=== PATIENT | female | born 1990 | race Caucasian/White ===

== ENCOUNTER → 2016-10-29 | Outpatient (CLI) | payer OTHER ==
[~2016-10-29] MED LIST: ACET50TA PO; CELE-19 PO; CYCL10TA PO; HYDR-3713 PO; IBUP600T26 PO; ROBA750T4 PO; TRAM50TA2 PO
--- NOTE | 2016-10-29 11:08 | REP ---
Hepatobiliary scan and gallbladder ejection fraction: History: Right upper quadrant abdominal pain Technique: 6.5 mCi of technetium-99m mebrofenin was injected and sequential anterior images are acquired. 65 minutes after the mebrofenin injection, the patient consumed 8 ounces Ensure and an additional 60 minutes of imaging was acquired. Regions of interest are plotted around the gallbladder. Findings: The initial hepatocellular parenchymal uptake phase is normal and homogeneous. Intra- and extra-hepatic bile ducts and duodenum are labeled by the 10 -minute image. The gallbladder is first labeled on the 15 -minute image. There is normal washout from the liver parenchyma into the gallbladder and small intestine on subsequent images. The gallbladder ejection fraction is normal at 33 %. Values greater than 35 % are considered normal with this technique. Impression: Borderline low ejection fraction, otherwise negative hepatobiliary scan . Signed by Rodriguez Saldana MD 10/29/2016 11:00 A
== END ==
LOC: M RAD 08:03
PROVIDERS: ATTEND Family Medicine
DX: R10.11 Right upper quadrant pain (principal)

== ENCOUNTER → 2016-11-22 | Outpatient (CLI) | payer OTHER ==
[~2016-11-22] MED LIST changes: +GASTROGRAFIN SOLUTION 30ML (Q9963) As Ordered ONE; +ISOVUE-370 76% 100ML VIAL (Q9967) As Ordered ONE
--- NOTE | 2016-11-22 12:51 | REP ---
CT STUDY OF THE ABDOMEN AND PELVIS WITHOUT AND WITH IV CONTRAST: WITH ORAL CONTRAST. HISTORY: Right upper quadrant abdominal pain. The patient relates that she is status post prior appendectomy. Comparison study is from November 07, 2012. CT CONTRAST DOSE: 100 mL of Isovue-[address] FINDINGS: Preliminary digital activities director scouting radiograph shows mild gaseous distension of the sigmoid colon. Umbilical jewelry is noted in place. The lung bases remain clear. There is no evidence of pleural effusion or upper abdominal ascites. The liver and the spleen are normal in size and homogeneous in texture. No adrenal lesion is seen on either side. The kidneys enhance symmetrically and are morphologically intact on pre- and postcontrast images. No hydronephrosis is seen. Pancreas is unremarkable. The gallbladder shows no evidence of stone or other abnormality. No retroperitoneal mass or adenopathy is seen. Normal caliber aorta is noted. There are surgical clips at the appendectomy site medial to the cecum. Small and large bowel loops are unremarkable on CT images. No obstructive lesion is seen. No evidence of free air or abnormal fluid collection is seen. Uterus is mildly prominent measuring 9.7 cm in length but otherwise unremarkable. Urinary bladder is intact. No ovarian abnormality is appreciated. No pelvic mass or adenopathy is seen. IMPRESSION: Status post appendectomy. Mildly prominent size uterus. Otherwise, normal CT study abdomen and pelvis without and with IV contrast. Signed by Rodriguez Saldana MD 11/22/2016 04:46 P
== END ==
LOC: M RAD 08:58
PROVIDERS: ATTEND Surgery
DX: R10.9 Unspecified abdominal pain (principal)

== ENCOUNTER → 2017-03-12 | Outpatient (REF) | payer OTHER ==
[~2017-03-12] MED LIST changes: -GASTROGRAFIN SOLUTION 30ML (Q9963) As Ordered ONE; -ISOVUE-370 76% 100ML VIAL (Q9967) As Ordered ONE
== END ==
LOC: M SFHCCLAY 08:31
PROVIDERS: ATTEND Nurse Practitioner Family
DX: Z11.3 Encounter for screening for infections with a predominantly sexual mode of transmission (principal); Z13.89 Encounter for screening for other disorder; Z12.4 Encounter for screening for malignant neoplasm of cervix

== ENCOUNTER → 2017-03-20 | Outpatient (CLI) | payer OTHER ==
[~2017-03-20] MED LIST changes: +ADDE10CA3 PO; +BUPR15TA PO; -CELE-19 PO; +CELE1CAP4 PO
--- NOTE | 2017-03-20 08:37 | REP ---
Clinical: Pain. Technique: AP and lateral views of the left tibia / fibula. Findings: Osseous structures and joint spaces are intact and normal for age. No acute fracture or dislocation. No subcutaneous emphysema or radiodense foreign body. Impression: Normal left tibia / fibula radiographs.
== END ==
LOC: M CLY 08:12
PROVIDERS: ATTEND Nurse Practitioner Family
DX: M79.662 Pain in left lower leg (principal)

== ENCOUNTER 2017-05-24 15:50 | Emergency (ER) | payer OTHER ==
[~2017-05-24] VITALS: Ht 152.4 cm; Wt 56.8 kg
[~2017-05-24 15:50] MED LIST changes: -ADDE10CA3 PO; -BUPR15TA PO
[2017-05-24] MEDS ORDERED: BUPR15TA PO (16:08)
[2017-05-24] MEDS ORDERED: ADDE10CA3 PO (16:08)
[2017-05-24 19:10] VITALS: BP 129/76
== END 2017-05-24 19:14 | disposition home or self-care (01) ==
LOC: M ED 15:50
DX: F41.9 Anxiety disorder, unspecified (principal); R00.2 Palpitations; F17.200 Nicotine dependence, unspecified, uncomplicated; Z79.899 Other long term (current) drug therapy

== ENCOUNTER → 2017-08-01 | Outpatient (REF) | payer OTHER ==
[~2017-08-01] MED LIST changes: +ADDE10CA3 PO; +BUPR15TA PO
== END ==
LOC: M LAB REF 11:30
PROVIDERS: ATTEND Nurse Practitioner Family
DX: B00.9 Herpesviral infection, unspecified (principal)

== ENCOUNTER → 2017-08-19 | Outpatient (REF) | payer OTHER ==
[2017-08-20 12:35] LABS: BASO % 0.6 % (0.0-1.0); EOS # 0.2 10^3/uL (0.0-0.50); EOS % 4.1 % (0.0-3.0); IMMATURE GRANULOCYTE % 0.2 % (0-0); LYMPH # 1.1 10^3/uL (1.5-6.5); LYMPH % 19.9 % (24.0-44.0); MEAN CORPUSCULAR HEMOGLOBIN 30.7 pg (27.0-33.0); MEAN CORPUSCULAR HGB CONC 34.1 g/dl (32.0-36.5); MEAN CORPUSCULAR VOLUME 90.1 fl (80.0-96.0); MONO # 0.5 10^3/uL (0.0-0.8); MONO % 9.7 % (0.0-5.0); NEUTROPHILS # 3.5 10^3/uL (1.8-7.7); NEUTROPHILS % 65.5 % (36.0-66.0); PLATELET COUNT, AUTOMATED 183 10^3/uL (150-450); WHITE BLOOD COUNT 5.3 10^3/uL (4.0-10.0)
== END ==
LOC: M SFHCCLAY 13:56
PROVIDERS: ATTEND Family Medicine
DX: J02.9 Acute pharyngitis, unspecified (principal); R53.83 Other fatigue

== ENCOUNTER → 2017-10-03 | Outpatient (CLI) | payer OTHER | LOC: M CLY 14:02 | DX: R07.81 Pleurodynia (principal); R07.89 Other chest pain | CPT/HCPCS: 71046 ==

== ENCOUNTER → 2017-12-05 | Outpatient (REF) | payer OTHER ==
[2017-12-05 19:07] LABS: CHLAMYDIA DNA AMPLIFICATION NEGATIVE (NEGATIVE); GC DNA AMPLIFICATION NEGATIVE (NEGATIVE)
== END ==
LOC: M SFHCCLAY 16:17
DX: N76.0 Acute vaginitis (principal)

== ENCOUNTER → 2018-04-07 | Outpatient (REF) | payer OTHER ==
[2018-04-07 16:17] LABS: BASO % 0.4 % (0.0-1.0); EOS # 0.3 10^3/uL (0.0-0.50); EOS % 5.6 % (0.0-3.0); HEMATOCRIT 40.4 % (36.0-47.0); HEMOGLOBIN 13.8 g/dl (12.0-15.5); IMMATURE GRANULOCYTE % 0.2 % (0-3.0); LYMPH % 20.2 % (24.0-44.0); MEAN CORPUSCULAR HEMOGLOBIN 31.9 pg (27.0-33.0); MEAN CORPUSCULAR HGB CONC 34.2 g/dl (32.0-36.5); MEAN CORPUSCULAR VOLUME 93.3 fl (80.0-96.0); MONO # 0.3 10^3/uL (0.0-0.8); MONO % 6.6 % (0.0-5.0); NEUTROPHILS # 3.4 10^3/uL (1.8-7.7); PLATELET COUNT, AUTOMATED 198 10^3/uL (150-450); RED BLOOD COUNT 4.33 10^6/uL (4.00-5.40); RED CELL DISTRIBUTION WIDTH 12.1 % (11.5-14.5); WHITE BLOOD COUNT 5.1 10^3/uL (4.0-10.0)
[2018-04-07 16:25] LABS: URIC ACID 4.7 MG/DL (2.6-6.0)
[2018-04-07 16:25] LABS: C REACTIVE PROTEIN QUANTITATIV 0.32 MG/DL (0.00-0.30)
== END ==
LOC: M SFHCCLAY 09:18
DX: M79.672 Pain in left foot (principal)

== ENCOUNTER → 2018-04-07 | Outpatient (CLI) | payer OTHER | LOC: M CLY 09:22 | DX: M79.672 Pain in left foot (principal) | CPT/HCPCS: 73630 ==

== ENCOUNTER 2018-07-04 13:49 | Inpatient (IN) | payer MEDICAID, OTHER ==
[2018-07-04 14:48] LABS: HEMATOCRIT 41.3 % (36.0-47.0); HEMOGLOBIN 14.7 g/dl (12.0-15.5); MEAN CORPUSCULAR HEMOGLOBIN 31.7 pg (27.0-33.0); MEAN CORPUSCULAR HGB CONC 35.6 g/dl (32.0-36.5); MEAN CORPUSCULAR VOLUME 89.2 fl (80.0-96.0); PLATELET COUNT, AUTOMATED 259 10^3/uL (150-450); RED BLOOD COUNT 4.63 10^6/uL (4.00-5.40); RED CELL DISTRIBUTION WIDTH 11.9 % (11.5-14.5)
[2018-07-04 15:05] LABS: CONTROL LINE HCG INT CTR LINE PRESENT; HCG, SERUM QUALITATIVE NEGATIVE (NEGATIVE)
[2018-07-04 15:10] LABS: AMPHETAMINES LEVEL URINE NEGATIVE (NEGATIVE); BARBITURATES URINE NEGATIVE (NEGATIVE); BENZODIAZEPINES URINE NEGATIVE (NEGATIVE); CANNABINOIDS URINE NEGATIVE (NEGATIVE); COCAINE METABOLITE URINE POSITIVE (NEGATIVE); METHADONE URINE NEGATIVE (NEGATIVE); OPIATES URINE NEGATIVE (NEGATIVE); PHENCYCLIDINE URINE NEGATIVE (NEGATIVE)
[2018-07-04 15:20] LABS: ACETAMINOPHEN LEVEL < 2.0 UG/ML (10.0-30.0); ALBUMIN 4.1 GM/DL (3.2-5.2); ALBUMIN/GLOBULIN RATIO 1.11 (1.00-1.93); ALKALINE PHOSPHATASE 49 U/L (45-117); ALT/SGPT 22 U/L (12-78); ANION GAP 9 MEQ/L (8-16); AST/SGOT 17 U/L (7-37); BILIRUBIN,DIRECT < 0.1 MG/DL (0.0-0.2); BILIRUBIN,TOTAL 0.4 MG/DL (0.2-1.0); BLOOD UREA NITROGEN 8 MG/DL (7-18); CALCIUM LEVEL 8.5 MG/DL (8.5-10.1); CARBON DIOXIDE LEVEL 26 MEQ/L (21-32); CHLORIDE LEVEL 110 MEQ/L (98-107); CREATININE FOR GFR 0.69 MG/DL (0.55-1.30); ETHYL ALCOHOL (ETHANOL) 0.093 % (0.000-0.010); GLOMERULAR FILTRATION RATE > 60.0 (>60); GLUCOSE, FASTING 85 MG/DL (70-100); POTASSIUM SERUM 3.9 MEQ/L (3.5-5.1); SALICYLATE LEVEL < 1.7 MG/DL (5.0-30.0); SODIUM LEVEL 145 MEQ/L (136-145); TOTAL PROTEIN 7.8 GM/DL (6.4-8.2)
[2018-07-04 15:21] LABS: LITHIUM LEVEL < 0.20 MEQ/L (0.60-1.20)
[2018-07-04] MEDS: ALPRAZolam 0.25 MG TAB PO (19:35)
[2018-07-05] MEDS: ALPRAZolam 0.25 MG TAB PO ×2 (08:15→21:19)
[2018-07-05] MEDS: LITHIUM CARBONATE 300 MG CAP PO ×2 (08:15→21:20)
[2018-07-05] MEDS: buPROPion (WELLBUTRIN SR) 100 MG SR TAB PO (08:46)
[2018-07-05] MEDS ORDERED: buPROPion (WELLBUTRIN SR) 100 MG SR TAB PO (09:00)
[2018-07-05] MEDS: ALPRAZolam 0.5 MG TAB PO (13:13)
[2018-07-05] MEDS ORDERED: buPROPion 75 MG TAB PO (20:30)
[2018-07-05] MEDS: buPROPion **SR TABLET** (ZYBAN) 150MG PO (21:19)
[2018-07-06] MEDS: ALPRAZolam 0.25 MG TAB PO (08:28)
[2018-07-06] MEDS: buPROPion **SR TABLET** (ZYBAN) 150MG PO (08:28)
[2018-07-06] MEDS ORDERED: LITHIUM CARBONATE 300 MG CAP PO ×2 (09:00→21:00)
[2018-07-06] MEDS ORDERED: MAALOX 30 ML SUSP *UDC PO (13:00)
[2018-07-06] MEDS ORDERED: MOM 30ML SUSPENSION UDC PO (13:00)
[2018-07-06] MEDS ORDERED: ACETAMINOPHEN TAB 650MG DOSE (2X325MG) PO (13:00)
[2018-07-06] MEDS: LORazepam 1 MG TAB PO (15:04)
[2018-07-06] MEDS: LITHIUM CARBONATE 300 MG CAP PO (21:40)
[2018-07-07] MEDS: buPROPion **SR TABLET** (ZYBAN) 150MG PO ×2 (08:31→12:10)
[2018-07-07 10:58] LABS: HEMATOCRIT 41.2 % (36.0-47.0); HEMOGLOBIN 14.1 g/dl (12.0-15.5); MEAN CORPUSCULAR HEMOGLOBIN 31.2 pg (27.0-33.0); MEAN CORPUSCULAR HGB CONC 34.2 g/dl (32.0-36.5); MEAN CORPUSCULAR VOLUME 91.2 fl (80.0-96.0); PLATELET COUNT, AUTOMATED 235 10^3/uL (150-450); RED BLOOD COUNT 4.52 10^6/uL (4.00-5.40); RED CELL DISTRIBUTION WIDTH 11.6 % (11.5-14.5)
[2018-07-07 11:31] LABS: ALBUMIN/GLOBULIN RATIO 1.25 (1.00-1.93); ALKALINE PHOSPHATASE 50 U/L (45-117); ALT/SGPT 21 U/L (12-78); ANION GAP 6 MEQ/L (8-16); AST/SGOT 15 U/L (7-37); BILIRUBIN,TOTAL 0.7 MG/DL (0.2-1.0); BLOOD UREA NITROGEN 13 MG/DL (7-18); CALCIUM LEVEL 8.4 MG/DL (8.5-10.1); CARBON DIOXIDE LEVEL 28 MEQ/L (21-32); CHLORIDE LEVEL 105 MEQ/L (98-107); CREATININE FOR GFR 0.89 MG/DL (0.55-1.30); GLOMERULAR FILTRATION RATE > 60.0 (>60); GLUCOSE, FASTING 128 MG/DL (70-100); POTASSIUM SERUM 4.4 MEQ/L (3.5-5.1); SODIUM LEVEL 139 MEQ/L (136-145); TOTAL PROTEIN 7.2 GM/DL (6.4-8.2)
[2018-07-07] MEDS: LORazepam 1 MG TAB PO ×3 (12:10→21:47)
[2018-07-07 13:14] LABS: KETONE, URINE AUTO RFX NEGATIVE (NEGATIVE); LEUKOCYTE ESTERASE UR AUTO RFX NEGATIVE (NEGATIVE); NITRITE, URINE AUTO RFX NEGATIVE (NEGATIVE); RBC, URINE AUTO RFX 0 /HPF (0-3); SQUAM EPITHELIAL CELL UR AURFX 4 /HPF (0-6); WBC, URINE AUTO RFX 1 /HPF (0-3)
[2018-07-07] MEDS: LITHIUM CARBONATE 300 MG CAP PO (20:20)
[2018-07-07] MEDS: traZODone 50 MG TAB PO (21:47)
[2018-07-08 07:33] LABS: LITHIUM LEVEL 0.54 MEQ/L (0.60-1.20)
[2018-07-08] MEDS: buPROPion **SR TABLET** (ZYBAN) 150MG PO ×2 (08:16→12:19)
[2018-07-08] MEDS: VENLAFAXINE **XR** 37.5 MG CAPSULE PO (09:00)
[2018-07-08] MEDS: LORazepam 1 MG TAB PO (12:19)
[2018-07-08] MEDS: LORazepam 0.5 MG TAB PO (15:27)
[2018-07-08] MEDS: LITHIUM CARBONATE 300 MG CAP PO (20:51)
[2018-07-09] MEDS: traZODone 50 MG TAB PO (00:19)
[2018-07-09] MEDS: buPROPion **SR TABLET** (ZYBAN) 150MG PO (08:01)
[2018-07-09] MEDS: VENLAFAXINE **XR** 37.5 MG CAPSULE PO (08:01)
[2018-07-09] MEDS: hydrOXYzine 50 MG TAB PO (15:48)
[2018-07-09] MEDS: LITHIUM CARBONATE 300 MG CAP PO (20:39)
[2018-07-10] MEDS: VENLAFAXINE **XR** 37.5 MG CAPSULE PO ×2 (08:29→11:12)
[2018-07-10] MEDS: buPROPion **SR TABLET** (ZYBAN) 150MG PO (08:29)
[2018-07-10 12:29] LABS: LITHIUM LEVEL 0.66 MEQ/L (0.60-1.20)
[2018-07-10] MEDS: hydrOXYzine 50 MG TAB PO ×2 (15:05→22:35)
[2018-07-10] MEDS: LITHIUM CARBONATE 300 MG CAP PO (21:00)
[2018-07-10] MEDS: IBUPROFEN 600 MG TAB PO (21:48)
[2018-07-11] MEDS: VENLAFAXINE **XR** 75MG CAPSULE PO (08:29)
[2018-07-11] MEDS: hydrOXYzine 50 MG TAB PO (15:58)
[2018-07-11] MEDS: valACYclovir HCL 500 MG TAB PO (20:58)
[2018-07-11] MEDS: LITHIUM CARBONATE 300 MG CAP PO (20:58)
[2018-07-12] MEDS: VENLAFAXINE **XR** 75MG CAPSULE PO (09:12)
[2018-07-12] MEDS: valACYclovir HCL 500 MG TAB PO (09:33)
[2018-07-12] MEDS: LITHIUM CARBONATE 300 MG CAP PO (20:56)
[2018-07-13] MEDS: hydrOXYzine 50 MG TAB PO (01:29)
[2018-07-13] MEDS: VENLAFAXINE **XR** 75MG CAPSULE PO (08:26)
== END 2018-07-13 13:10 | disposition home or self-care (01) | DRG 753 ==
LOC: M ED INP 07-06 12:54 → M ED 13:49 → M PSY 07-06 13:55
DX: F31.60 Bipolar disorder, current episode mixed, unspecified (principal); R45.851 Suicidal ideations; F10.10 Alcohol abuse, uncomplicated; F14.90 Cocaine use, unspecified, uncomplicated; F41.9 Anxiety disorder, unspecified; F17.200 Nicotine dependence, unspecified, uncomplicated; R10.9 Unspecified abdominal pain; Z79.899 Other long term (current) drug therapy

== ENCOUNTER → 2018-09-08 | Outpatient (REF) | payer MEDICAID ==
[~2018-09-08] MED LIST changes: +ALPR0.25 PO; +BUPR150T5 PO; +BUPR1TAB53 PO; +HYDRO50TAB PO; +LITH300C PO; +LITH300T2 PO; +TRAZO50TA PO; +VENL75CA47 PO
[2018-09-08 14:38] LABS: CHLAMYDIA DNA AMPLIFICATION NEGATIVE (NEGATIVE); GC DNA AMPLIFICATION NEGATIVE (NEGATIVE)
== END ==
LOC: M LAB REF 12:18
PROVIDERS: ATTEND Physician Assistant
DX: R30.0 Dysuria (principal)

== ENCOUNTER → 2018-10-16 | Outpatient (REF) | payer OTHER | LOC: M SFHCCLAY 13:34 | PROVIDERS: ATTEND Nurse Practitioner Family | DX: J02.9 Acute pharyngitis, unspecified (principal) ==

== ENCOUNTER 2018-12-28 01:04 | Emergency (ER) | payer OTHER ==
[~2018-12-28] VITALS: Ht 154.9 cm; Wt 61.2 kg
[~2018-12-28 01:04] MED LIST changes: -ACET50TA PO; +MAPA500T17 PO
[2018-12-28 02:02] LABS: HEMATOCRIT 38.9 % (36.0-47.0); HEMOGLOBIN 13.7 g/dl (12.0-15.5); MEAN CORPUSCULAR HEMOGLOBIN 31.5 pg (27.0-33.0); MEAN CORPUSCULAR HGB CONC 35.2 g/dl (32.0-36.5); MEAN CORPUSCULAR VOLUME 89.4 fl (80.0-96.0); PLATELET COUNT, AUTOMATED 224 10^3/uL (150-450); RED BLOOD COUNT 4.35 10^6/uL (4.00-5.40); WHITE BLOOD COUNT 6.2 10^3/uL (4.0-10.0)
[2018-12-28] MEDS ORDERED: VYVA30CA4 PO (02:09)
[2018-12-28] MEDS ORDERED: ALPR0.25 PO (02:09)
[2018-12-28] MEDS ORDERED: BUPR1TAB53 PO (02:09)
[2018-12-28] MEDS ORDERED: LARI1TAB5 PO (02:09)
[2018-12-28] MEDS ORDERED: LITH300T2 PO (02:09)
[2018-12-28 02:25] LABS: AMPHETAMINES LEVEL URINE NEGATIVE (NEGATIVE); BARBITURATES URINE NEGATIVE (NEGATIVE); BENZODIAZEPINES URINE NEGATIVE (NEGATIVE); CANNABINOIDS URINE NEGATIVE (NEGATIVE); COCAINE METABOLITE URINE POSITIVE (NEGATIVE); METHADONE URINE NEGATIVE (NEGATIVE); OPIATES URINE NEGATIVE (NEGATIVE); PHENCYCLIDINE URINE NEGATIVE (NEGATIVE)
[2018-12-28 02:43] LABS: ACETAMINOPHEN LEVEL < 2.0 UG/ML (10.0-30.0); ALBUMIN 3.7 GM/DL (3.2-5.2); ALT/SGPT 22 U/L (12-78); BILIRUBIN,DIRECT 0.1 MG/DL (0.0-0.2); BILIRUBIN,TOTAL 0.4 MG/DL (0.2-1.0); BLOOD UREA NITROGEN 10 MG/DL (7-18); CALCIUM LEVEL 8.1 MG/DL (8.5-10.1); CARBON DIOXIDE LEVEL 26 MEQ/L (21-32); CHLORIDE LEVEL 110 MEQ/L (98-107); CREATININE FOR GFR 0.62 MG/DL (0.55-1.30); ETHYL ALCOHOL (ETHANOL) 0.184 % (0.000-0.010); GLOMERULAR FILTRATION RATE > 60.0 (>60); GLUCOSE, FASTING 90 MG/DL (70-100); LITHIUM LEVEL < 0.20 MEQ/L (0.60-1.20); POTASSIUM SERUM 3.3 MEQ/L (3.5-5.1); SALICYLATE LEVEL < 1.7 MG/DL (5.0-30.0); SODIUM LEVEL 145 MEQ/L (136-145); TOTAL PROTEIN 6.9 GM/DL (6.4-8.2)
[2018-12-28 06:53] VITALS: BP 118/57
== END 2018-12-28 07:30 | disposition home or self-care (01) ==
LOC: M ED 01:04
DX: F10.129 Alcohol abuse with intoxication, unspecified (principal); F91.9 Conduct disorder, unspecified; F14.10 Cocaine abuse, uncomplicated
CPT/HCPCS: 80048; 80076; 80178; 80307; 84443; 85027; 99284; G0480

== ENCOUNTER → 2019-01-12 | Outpatient (REF) | payer OTHER ==
[~2019-01-12] MED LIST changes: +LARI1TAB5 PO; +VYVA30CA4 PO
== END ==
LOC: M LAB REF 08:54
PROVIDERS: ATTEND Advanced Practice Midwife
DX: Z12.4 Encounter for screening for malignant neoplasm of cervix (principal)

== ENCOUNTER → 2019-05-19 | Outpatient (REF) | payer OTHER ==
[~2019-05-19] MED LIST changes: +HYDR1TAB33 PO; -HYDRO50TAB PO; +TRAZ1TAB10 PO; -TRAZO50TA PO
[2019-05-20 12:01] LABS: BILIRUBIN,DIRECT 0.2 MG/DL (0.0-0.2); BILIRUBIN,TOTAL 0.7 MG/DL (0.2-1.0); TOTAL PROTEIN 6.9 GM/DL (6.4-8.2)
== END ==
LOC: M SFHCCLAY 15:24
PROVIDERS: ATTEND Family Medicine
DX: R10.11 Right upper quadrant pain (principal)

== ENCOUNTER → 2019-05-27 | Outpatient (CLI) | payer OTHER ==
--- NOTE | 2019-05-27 08:15 | REP ---
Clinical: Right upper quadrant pain. Technique: Real time witt scale ultrasound examination using curved array transducer. Findings: Liver is normal in appearance. The pancreas is incompletely evaluated due to interposed bowel gas but visualized portions appear normal. The gallbladder is unremarkable and without gallstones, wall thickening, or pericholecystic fluid. Small 2 mm benign appearing gallbladder polyp is suggested. No biliary ductal dilatation is appreciated and the common bile duct measures 3.7 mm diameter. The right kidney is normal in reniform shape without hydronephrosis and measures 10.1 x 4.5 x 6.4 cm. No ascites in the visualized right upper quadrant. Impression: Normal right upper quadrant abdominal ultrasound. Electronically Signed by Marquise Webber MD 05/27/2019 08:06 A
== END ==
LOC: M RAD 06:50
PROVIDERS: ATTEND Family Medicine
DX: R10.11 Right upper quadrant pain (principal)

== ENCOUNTER 2019-07-25 01:17 | Emergency (ER) | payer OTHER ==
[2019-07-25 01:16] LABS: HEMATOCRIT 38.9 % (36.0-47.0); HEMOGLOBIN 13.7 g/dl (12.0-15.5); MEAN CORPUSCULAR HEMOGLOBIN 31.9 pg (27.0-33.0); MEAN CORPUSCULAR HGB CONC 35.2 g/dl (32.0-36.5); MEAN CORPUSCULAR VOLUME 90.5 fl (80.0-96.0); PLATELET COUNT, AUTOMATED 244 10^3/uL (150-450); WHITE BLOOD COUNT 7.5 10^3/uL (4.0-10.0)
[2019-07-25 01:27] LABS: HCG, SERUM QUALITATIVE NEGATIVE (NEGATIVE)
[2019-07-25 02:23] LABS: ACETAMINOPHEN LEVEL < 2.0 UG/ML (10.0-30.0); ALT/SGPT 30 U/L (12-78); AMPHETAMINES LEVEL URINE NEGATIVE (NEGATIVE); BARBITURATES URINE NEGATIVE (NEGATIVE); BENZODIAZEPINES URINE NEGATIVE (NEGATIVE); BILIRUBIN,DIRECT < 0.1 MG/DL (0.0-0.2); BILIRUBIN,TOTAL 0.3 MG/DL (0.2-1.0); BLOOD UREA NITROGEN 11 MG/DL (7-18); CALCIUM LEVEL 8.5 MG/DL (8.5-10.1); CANNABINOIDS URINE NEGATIVE (NEGATIVE); CARBON DIOXIDE LEVEL 25 MEQ/L (21-32); CHLORIDE LEVEL 110 MEQ/L (98-107); COCAINE METABOLITE URINE NEGATIVE (NEGATIVE); CREATININE FOR GFR 0.64 MG/DL (0.55-1.30); ETHYL ALCOHOL (ETHANOL) 0.195 % (0.000-0.010); GLOMERULAR FILTRATION RATE > 60.0 (>60); GLUCOSE, FASTING 101 MG/DL (70-100); METHADONE URINE NEGATIVE (NEGATIVE); OPIATES URINE NEGATIVE (NEGATIVE); PHENCYCLIDINE URINE NEGATIVE (NEGATIVE); POTASSIUM SERUM 3.9 MEQ/L (3.5-5.1); SALICYLATE LEVEL < 1.7 MG/DL (5.0-30.0); SODIUM LEVEL 143 MEQ/L (136-145); TOTAL PROTEIN 7.6 GM/DL (6.4-8.2)
[2019-07-25 08:47] VITALS: BP 133/84
== END 2019-07-25 08:48 | disposition home or self-care (01) ==
LOC: M ED 01:17
DX: F10.220 Alcohol dependence with intoxication, uncomplicated (principal); F17.210 Nicotine dependence, cigarettes, uncomplicated; Z79.899 Other long term (current) drug therapy
CPT/HCPCS: 36415; 80048; 80076; 80307; 84443; 84703; 85027; 99284; G0480

== ENCOUNTER → 2019-08-10 | Outpatient (CLI) | payer OTHER ==
--- NOTE | 2019-08-10 14:23 | REP ---
Four views bilateral hands: 08/10/2019. Indication: Hand pain. Comparison: None. Findings: There is no acute fracture, subluxation or dislocation. No lytic or blastic lesions are present within the visualized osseous structures. No significant arthritides are present. Impression: No acute fracture or additional acute pathology. Electronically Signed by Basim Gross DO 08/10/2019 02:14 P
== END ==
LOC: M CLY 13:47
PROVIDERS: ATTEND Family Medicine
DX: M79.642 Pain in left hand (principal); M79.641 Pain in right hand

== ENCOUNTER → 2019-08-10 | Outpatient (REF) | payer OTHER ==
[2019-08-10 18:08] LABS: BASO % 0.5 % (0.0-1.0); EOS # 0.2 10^3/uL (0.0-0.5); EOS % 3.5 % (0.0-3.0); HEMATOCRIT 40.4 % (36.0-47.0); LYMPH # 1.6 10^3/uL (1.5-5.0); LYMPH % 27.4 % (24.0-44.0); MEAN CORPUSCULAR HEMOGLOBIN 31.7 pg (27.0-33.0); MEAN CORPUSCULAR HGB CONC 34.7 g/dl (32.0-36.5); MEAN CORPUSCULAR VOLUME 91.4 fl (80.0-96.0); MONO # 0.5 10^3/uL (0.0-0.8); MONO % 9.3 % (0.0-5.0); NEUTROPHILS # 3.4 10^3/uL (1.5-8.5); NEUTROPHILS % 59.1 % (36.0-66.0); PLATELET COUNT, AUTOMATED 224 10^3/uL (150-450); RED BLOOD COUNT 4.42 10^6/uL (4.00-5.40); WHITE BLOOD COUNT 5.7 10^3/uL (4.0-10.0)
[2019-08-10 18:21] LABS: C REACTIVE PROTEIN QUANTITATIV < 0.30 MG/DL (0.00-0.30); RHEUMATOID FACTOR QUANT < 10.0 IU/ML (<15.0); URIC ACID 3.9 MG/DL (2.6-6.0)
[2019-08-10 18:59] LABS: ERYTHROCYTE SEDIMENTATION RATE 3 mm/hr (0-20)
[2019-08-14 00:16] LABS: ANA (HEP2) Positive (.); CYCLIC CITRULLINATED PEPTIDE 6 units (0-19); Lyme Disease IgG Ab 18 kDa Ban Absent (.); Lyme Disease IgG Ab 23 kDa Ban Absent (.); Lyme Disease IgG Ab 28 kDa Ban Absent (.); Lyme Disease IgG Ab 30 kDa Ban Absent (.); Lyme Disease IgG Ab 39 kDa Ban Absent (.); Lyme Disease IgG Ab 41 kDa Ban Present (.); Lyme Disease IgG Ab 45 kDa Ban Absent (.); Lyme Disease IgG Ab 58 kDa Ban Absent (.); Lyme Disease IgG Ab 66 kDa Ban Absent (.); Lyme Disease IgG Ab 93 kDa Ban Absent (.); Lyme Disease IgG West Blot Int Negative (.); Lyme Disease IgG/IgM Antibodie <0.91 ISR (0.00-0.90); Lyme Disease IgM Ab 23 kDa Ban Present (.); Lyme Disease IgM Ab 39 kDa Ban Absent (.); Lyme Disease IgM Ab 41 kDa Ban Absent (.); Lyme Disease IgM Ab Quantitati 0.84 index (0.00-0.79); Lyme Disease IgM West Blot Int Negative (.)
== END ==
LOC: M SFHCCLAY 13:38
PROVIDERS: ATTEND Family Medicine
DX: M25.50 Pain in unspecified joint (principal)

== ENCOUNTER → 2019-10-22 | Outpatient (REF) | payer OTHER ==
[2019-10-22 19:06] LABS: ALBUMIN 4.6 GM/DL (3.2-5.2); ALT/SGPT 18 U/L (12-78); BILIRUBIN,TOTAL 0.6 MG/DL (0.2-1.0); BLOOD UREA NITROGEN 11 MG/DL (7-18); C REACTIVE PROTEIN QUANTITATIV < 0.30 MG/DL (0.00-0.30); CALCIUM LEVEL 9.2 MG/DL (8.5-10.1); CARBON DIOXIDE LEVEL 29 MEQ/L (21-32); CHLORIDE LEVEL 106 MEQ/L (98-107); COMPLEMENT C3 106 MG/DL (90-180); COMPLEMENT C4 19 MG/DL (10-40); CREATININE FOR GFR 0.73 MG/DL (0.55-1.30); GLOMERULAR FILTRATION RATE > 60.0 (>60); GLUCOSE, FASTING 86 MG/DL (70-100); POTASSIUM SERUM 3.7 MEQ/L (3.5-5.1); RHEUMATOID FACTOR QUANT < 10.0 IU/ML (<15.0); SODIUM LEVEL 141 MEQ/L (136-145); TOTAL PROTEIN 7.7 GM/DL (6.4-8.2)
[2019-10-22 19:11] LABS: BASO % 0.5 % (0.0-1.0); EOS # 0.2 10^3/uL (0.0-0.5); EOS % 2.7 % (0.0-3.0); LYMPH # 1.3 10^3/uL (1.5-5.0); LYMPH % 22.1 % (24.0-44.0); MEAN CORPUSCULAR HEMOGLOBIN 30.7 pg (27.0-33.0); MEAN CORPUSCULAR HGB CONC 33.3 g/dl (32.0-36.5); MONO # 0.4 10^3/uL (0.0-0.8); MONO % 5.8 % (0.0-5.0); NEUTROPHILS # 4.2 10^3/uL (1.5-8.5); NEUTROPHILS % 68.7 % (36.0-66.0); PLATELET COUNT, AUTOMATED 214 10^3/uL (150-450); RED BLOOD COUNT 4.89 10^6/uL (4.00-5.40)
[2019-10-22 19:16] LABS: APPEARANCE, URINE CLEAR (CLEAR); BACTERIA, URINE AUTO 1+ (NEGATIVE); BILIRUBIN, URINE AUTO NEGATIVE (NEGATIVE); BLOOD, URINE BLOOD 1+ (NEGATIVE); COLOR, URINE YELLOW (YELLOW); GLUCOSE, URINE (UA) AUTO NEGATIVE (NEGATIVE); KETONE, URINE AUTO NEGATIVE (NEGATIVE); LEUKOCYTE ESTERASE, URINE AUTO NEGATIVE (NEGATIVE); MUCUS, URINE SMALL (NEGATIVE); NITRITE, URINE AUTO NEGATIVE (NEGATIVE); PROTEIN, URINE AUTO NEGATIVE (NEGATIVE); RBC, URINE AUTO 1 /HPF (0-3); SPECIFIC GRAVITY URINE AUTO 1.005 (1.002-1.035); SQUAMOUS EPITHELIAL CELL UR AU 2 /HPF (0-6); UROBILINOGEN, URINE AUTO 0.2 mg/dL (0.0-2.0); WBC, URINE AUTO 0 /HPF (0-3)
[2019-10-22 23:13] LABS: ERYTHROCYTE SEDIMENTATION RATE 1 mm/hr (0-20)
[2019-10-25 11:00] LABS: HEPATITIS B SURFACE ANTIGEN NEGATIVE (NEGATIVE)
[2019-10-25 11:29] LABS: HEPATITIS C VIRUS ABY INDEX < 0.0 INDEX (<0.8)
[2019-10-26 00:07] LABS: ANA (HEP2) Negative (.); ANTI DS-DNA AB Negative (Negative); CYCLIC CITRULLINATED PEPTIDE 8 units (0-19); HEPATITIS B CORE ANTIBODY IGG Negative (Negative); RNP ANTIBODY < 0.2 AI (0.0-0.9); SMITHS ANTIBODY < 0.2 AI (0.0-0.9); SSA SJOGRENS A <0.2 AI (0.0-0.9); SSB SJOGRENS B <0.2 AI (0.0-0.9)
== END ==
LOC: M SFHCRHEU 13:56
PROVIDERS: ATTEND Internal Medicine
DX: R76.8 Other specified abnormal immunological findings in serum (principal); M06.4 Inflammatory polyarthropathy

== ENCOUNTER → 2019-12-10 | Outpatient (REF) | payer OTHER | LOC: M SFHCCLAY 07:35 | PROVIDERS: ATTEND Family Medicine | DX: R05 Cough (principal) | CPT/HCPCS: 87486; 87581; 87633; 87798; U0002 ==

== ENCOUNTER 2020-02-06 10:36 | Emergency (ER) | payer OTHER ==
[~2020-02-06] VITALS: Ht 154.9 cm; Wt 66.3 kg
[~2020-02-06 10:36] MED LIST changes: +CYCL-707 PO; -CYCL10TA PO; +FOLIC ACID 1 MG TAB PO SCH; +MULTIVITAMINS/MINERALS THERAP 1 TAB PO SCH
[2020-02-06] MEDS ORDERED: HYDR200T3 (10:45)
[2020-02-06] MEDS ORDERED: ALPR0.25 (10:45)
[2020-02-06] MEDS ORDERED: MIRE1IUD IU (10:46)
[2020-02-06 11:41] LABS: HEMOGLOBIN 14.1 g/dl (12.0-15.5); MEAN CORPUSCULAR HEMOGLOBIN 31.8 pg (27.0-33.0); MEAN CORPUSCULAR HGB CONC 35.3 g/dl (32.0-36.5); MEAN CORPUSCULAR VOLUME 90.3 fl (80.0-96.0); PLATELET COUNT, AUTOMATED 221 10^3/uL (150-450); RED BLOOD COUNT 4.43 10^6/uL (4.00-5.40); WHITE BLOOD COUNT 6.2 10^3/uL (4.0-10.0)
[2020-02-06] MEDS ORDERED: LORazepam 2 MG TAB PO PRN (11:45)
[2020-02-06 12:11] LABS: ACETAMINOPHEN LEVEL < 2.0 UG/ML (10.0-30.0); ALBUMIN 4.2 GM/DL (3.2-5.2); ALT/SGPT 19 U/L (12-78); BILIRUBIN,DIRECT 0.2 MG/DL (0.0-0.2); BILIRUBIN,TOTAL 0.5 MG/DL (0.2-1.0); BLOOD UREA NITROGEN 7 MG/DL (7-18); CALCIUM LEVEL 8.4 MG/DL (8.5-10.1); CARBON DIOXIDE LEVEL 28 MEQ/L (21-32); CHLORIDE LEVEL 107 MEQ/L (98-107); CREATININE FOR GFR 0.62 MG/DL (0.55-1.30); ETHYL ALCOHOL (ETHANOL) 0.151 % (0.000-0.010); GLOMERULAR FILTRATION RATE > 60.0 (>60); GLUCOSE, FASTING 97 MG/DL (70-100); POTASSIUM SERUM 3.4 MEQ/L (3.5-5.1); SALICYLATE LEVEL < 1.7 MG/DL (5.0-30.0); SODIUM LEVEL 143 MEQ/L (136-145); THYROID STIMULATING HORMONE 0.942 uIU/ML (0.358-3.740); TOTAL PROTEIN 7.5 GM/DL (6.4-8.2)
[2020-02-06 12:12] LABS: AMPHETAMINES LEVEL URINE NEGATIVE (NEGATIVE); BARBITURATES URINE NEGATIVE (NEGATIVE); BENZODIAZEPINES URINE NEGATIVE (NEGATIVE); CANNABINOIDS URINE NEGATIVE (NEGATIVE); COCAINE METABOLITE URINE POSITIVE (NEGATIVE); METHADONE URINE NEGATIVE (NEGATIVE); OPIATES URINE NEGATIVE (NEGATIVE); PHENCYCLIDINE URINE NEGATIVE (NEGATIVE)
[2020-02-06 12:30] LABS: HCG, SERUM QUALITATIVE NEGATIVE (NEGATIVE)
[2020-02-06] MEDS: THIAMINE 100 MG TAB PO SCH ×2 (12:45→21:07)
[2020-02-06] MEDS ORDERED: LORazepam 1 MG TAB PO STA (15:51)
[2020-02-06] MEDS ORDERED: ACETAMINOPHEN 325 MG TAB PO ONE (16:00)
--- NOTE | 2020-02-06 21:11 | ECGEPIP ---
[facility] - ED Test Date: 2020-02-06 Pat Name: BERE LEE Department: Room: - Gender: Female Admissions Advisor: CLARISSE : [id number] Requested By: Cierra Dailey Order Number: [id number] Reading MD: Raisa Abdi Measurements Intervals [place] Rate: 87 P: 68 MN: 150 QRS: 47 QRSD: 98 T: 33 QT: 360 QTc: 435 Interpretive Statements SINUS RHYTHM SIMILAR 07/04/18 Electronically Signed on 02-06-2020 21:11:00 EDT by Raisa Abdi
[2020-02-06 21:44] VITALS: BP 123/62
== END 2020-02-06 21:51 ==
LOC: M ED 10:36
DX: F10.10 Alcohol abuse, uncomplicated (principal); R45.851 Suicidal ideations; F32.9 Major depressive disorder, single episode, unspecified; J30.1 Allergic rhinitis due to pollen; F17.200 Nicotine dependence, unspecified, uncomplicated; Z79.899 Other long term (current) drug therapy
CPT/HCPCS: 36415; 80048; 80076; 80307; 84443; 84703; 85027; 93005; 99285; G0480

== ENCOUNTER → 2020-05-18 | Outpatient (REF) | payer OTHER ==
[~2020-05-18] MED LIST changes: +ALPR0.25; -FOLIC ACID 1 MG TAB PO SCH; +HYDR200T3; +MIRE1IUD IU; -MULTIVITAMINS/MINERALS THERAP 1 TAB PO SCH
[2020-05-18 21:36] LABS: CHLAMYDIA DNA AMPLIFICATION NEGATIVE (NEGATIVE); GC DNA AMPLIFICATION NEGATIVE (NEGATIVE)
== END ==
LOC: M WHC 15:00
PROVIDERS: ATTEND Nurse Practitioner Women's Health
DX: Z12.4 Encounter for screening for malignant neoplasm of cervix (principal); Z11.3 Encounter for screening for infections with a predominantly sexual mode of transmission

== ENCOUNTER → 2020-08-15 | Outpatient (REF) | payer OTHER ==
[2020-08-15 13:17] LABS: APPEARANCE, URINE HAZY (CLEAR); BACTERIA, URINE AUTO 1+ (NEGATIVE); BILIRUBIN, URINE AUTO NEGATIVE (NEGATIVE); BLOOD, URINE BLOOD NEGATIVE (NEGATIVE); COLOR, URINE YELLOW (YELLOW); GLUCOSE, URINE (UA) AUTO NEGATIVE (NEGATIVE); KETONE, URINE AUTO NEGATIVE (NEGATIVE); LEUKOCYTE ESTERASE, URINE AUTO NEGATIVE (NEGATIVE); MUCUS, URINE SMALL (NEGATIVE); NITRITE, URINE AUTO NEGATIVE (NEGATIVE); PROTEIN, URINE AUTO NEGATIVE (NEGATIVE); RBC, URINE AUTO 1 /HPF (0-3); SPECIFIC GRAVITY URINE AUTO 1.013 (1.002-1.035); SQUAMOUS EPITHELIAL CELL UR AU 1 /HPF (0-6); UROBILINOGEN, URINE AUTO 0.2 mg/dL (0.0-2.0); WBC, URINE AUTO 1 /HPF (0-3)
[2020-08-15 13:27] LABS: BASO % 0.5 % (0.0-1.0); EOS # 0.2 10^3/uL (0.0-0.5); EOS % 3.5 % (0.0-3.0); HEMOGLOBIN 13.7 g/dl (12.0-15.5); LYMPH # 1.3 10^3/uL (1.5-5.0); LYMPH % 30.9 % (24.0-44.0); MEAN CORPUSCULAR HEMOGLOBIN 30.2 pg (27.0-33.0); MEAN CORPUSCULAR HGB CONC 33.4 g/dl (32.0-36.5); MEAN CORPUSCULAR VOLUME 90.5 fl (80.0-96.0); MONO # 0.5 10^3/uL (0.0-0.8); MONO % 11.4 % (0.0-5.0); NEUTROPHILS # 2.3 10^3/uL (1.5-8.5); NEUTROPHILS % 53.5 % (36.0-66.0); PLATELET COUNT, AUTOMATED 188 10^3/uL (150-450); RED BLOOD COUNT 4.53 10^6/uL (4.00-5.40); WHITE BLOOD COUNT 4.3 10^3/uL (4.0-10.0)
[2020-08-15 13:56] LABS: ALBUMIN 4.1 GM/DL (3.2-5.2); ALT/SGPT 15 U/L (12-78); BILIRUBIN,TOTAL 0.5 MG/DL (0.2-1.0); BLOOD UREA NITROGEN 10 MG/DL (7-18); CALCIUM LEVEL 9.2 MG/DL (8.5-10.1); CARBON DIOXIDE LEVEL 29 MEQ/L (21-32); CHLORIDE LEVEL 106 MEQ/L (98-107); CREATININE FOR GFR 0.69 MG/DL (0.55-1.30); GLOMERULAR FILTRATION RATE > 60.0 (>60); GLUCOSE, FASTING 61 MG/DL (70-100); POTASSIUM SERUM 3.8 MEQ/L (3.5-5.1); SODIUM LEVEL 140 MEQ/L (136-145); TOTAL PROTEIN 6.9 GM/DL (6.4-8.2)
[2020-08-15 14:44] LABS: ERYTHROCYTE SEDIMENTATION RATE 2 mm/hr (0-20)
[2020-08-17 13:07] LABS: ANA (HEP2) Negative (.); BETA-2 GLYCOPROTEIN I ABY IGA <9 (0-25); BETA-2 GLYCOPROTEIN I ABY IGG <9 (0-20); BETA-2 GLYCOPROTEIN I ABY IGM <9 (0-32); CARDIOLIPIN IGA ANTIBODY <9 APL U/mL (0-11); CARDIOLIPIN IGG ANTIBODY <9 GPL U/mL (0-14); CARDIOLIPIN IGM ANTIBODY <9 MPL U/mL (0-12)
== END ==
LOC: M SFHCRHEU 09:05
PROVIDERS: ATTEND Internal Medicine
DX: R76.8 Other specified abnormal immunological findings in serum (principal); M06.4 Inflammatory polyarthropathy

== ENCOUNTER → 2020-08-25 | Outpatient (REF) | payer OTHER | LOC: M LAB REF 17:25 | PROVIDERS: ATTEND Dermatology | DX: L90.5 Scar conditions and fibrosis of skin (principal) ==

== ENCOUNTER 2020-12-10 20:58 | Emergency (ER) | payer OTHER ==
[~2020-12-10] VITALS: Ht 154.9 cm; Wt 65.7 kg
[2020-12-10 21:31] LABS: BASO % 0.7 % (0.0-1.0); EOS # 0.2 10^3/uL (0.0-0.5); EOS % 3.9 % (0.0-3.0); HEMATOCRIT 34.5 % (36.0-47.0); HEMOGLOBIN 12.1 g/dl (12.0-15.5); LYMPH # 1.8 10^3/uL (1.5-5.0); LYMPH % 30.7 % (24.0-44.0); MEAN CORPUSCULAR HEMOGLOBIN 31.5 pg (27.0-33.0); MEAN CORPUSCULAR HGB CONC 35.1 g/dl (32.0-36.5); MEAN CORPUSCULAR VOLUME 89.8 fl (80.0-96.0); MONO # 0.5 10^3/uL (0.0-0.8); MONO % 8.2 % (2.0-8.0); NEUTROPHILS # 3.3 10^3/uL (1.5-8.5); NEUTROPHILS % 56.3 % (36.0-66.0); PLATELET COUNT, AUTOMATED 206 10^3/uL (150-450); RED BLOOD COUNT 3.84 10^6/uL (4.00-5.40); WHITE BLOOD COUNT 5.9 10^3/uL (4.0-10.0)
[2020-12-10 22:03] LABS: BILIRUBIN,DIRECT 0.1 MG/DL (0.0-0.2); BILIRUBIN,TOTAL 0.3 MG/DL (0.2-1.0)
[2020-12-10] MEDS ORDERED: KETOROLAC 30 MG/ML 1ML VIAL IV ONE (22:05)
--- NOTE | 2020-12-10 23:11 | REPVR ---
PROCEDURE INFORMATION: Exam: US Abdomen, Limited; Right Upper Quadrant Exam date and time: 12/10/2020 10:47 PM Age: 30 years old Clinical indication: Abdominal pain; Acute; Additional info: Ruq pain TECHNIQUE: Imaging protocol: US abdomen. Real time ultrasound with image documentation. Limited exam focused on the right upper quadrant. COMPARISON: GALLBLADDER US 05/27/2019 7:08 AM FINDINGS: Liver: Unremarkable. Gallbladder: Contracted with small stones. No definite gallbladder wall thickening or pericholecystic fluid. Negative sonographic Hollingsworth's sign, as per the performing fermenter wine. Common bile duct: No stones. No ductal dilatation. Pancreas: Suboptimally visualized. Right kidney: No mass. No definite stones. No hydronephrosis. IMPRESSION: Cholelithiasis without sonographic evidence of acute cholecystitis. Electronically signed by: Aurelio Shah On 12/10/2020 23:11:14 PM
[2020-12-10 23:34] VITALS: BP 125/70
== END 2020-12-10 23:36 | disposition home or self-care (01) ==
LOC: M ED 20:58
DX: K80.70 Calculus of gallbladder and bile duct without cholecystitis without obstruction (principal); J45.909 Unspecified asthma, uncomplicated; F31.9 Bipolar disorder, unspecified; Z79.899 Other long term (current) drug therapy; Z97.5 Presence of (intrauterine) contraceptive device; Z88.8 Allergy status to other drugs, medicaments and biological substances; Z77.098 Contact with and (suspected) exposure to other hazardous, chiefly nonmedicinal, chemicals
CPT/HCPCS: 76705; 80047; 80076; 81001; 83690; 84702; 85025; 96374; 99284; J1885

== ENCOUNTER → 2020-12-12 | Outpatient (REF) | payer OTHER ==
[~2020-12-12] MED LIST changes: +AMOX875T2; +AUGM875T28 PO; +HYDR-3713; +HYDR-4571 PO; +HYDR200T3 PO
[2020-12-12 16:35] LABS: BASO % 0.4 % (0.0-1.0); EOS # 0.2 10^3/uL (0.0-0.5); HEMATOCRIT 36.6 % (36.0-47.0); HEMOGLOBIN 12.3 g/dl (12.0-15.5); LYMPH # 1.5 10^3/uL (1.5-5.0); LYMPH % 26.8 % (24.0-44.0); MEAN CORPUSCULAR HEMOGLOBIN 30.7 pg (27.0-33.0); MEAN CORPUSCULAR HGB CONC 33.6 g/dl (32.0-36.5); MEAN CORPUSCULAR VOLUME 91.3 fl (80.0-96.0); MONO # 0.3 10^3/uL (0.0-0.8); NEUTROPHILS # 3.6 10^3/uL (1.5-8.5); NEUTROPHILS % 63.4 % (36.0-66.0); PLATELET COUNT, AUTOMATED 236 10^3/uL (150-450); RED BLOOD COUNT 4.01 10^6/uL (4.00-5.40); WHITE BLOOD COUNT 5.6 10^3/uL (4.0-10.0)
[2020-12-12 17:06] LABS: ALT/SGPT 15 U/L (12-78); AMYLASE 72 U/L (25-115); BILIRUBIN,TOTAL 0.5 MG/DL (0.2-1.0); BLOOD UREA NITROGEN 13 MG/DL (7-18); CALCIUM LEVEL 8.8 MG/DL (8.5-10.1); CARBON DIOXIDE LEVEL 31 MEQ/L (21-32); CHLORIDE LEVEL 106 MEQ/L (98-107); CREATININE FOR GFR 0.64 MG/DL (0.55-1.30); GLOMERULAR FILTRATION RATE > 60.0 (>60); GLUCOSE, FASTING 103 MG/DL (70-100); LIPASE 165 U/L (73-393); POTASSIUM SERUM 3.7 MEQ/L (3.5-5.1); SODIUM LEVEL 139 MEQ/L (136-145); TOTAL PROTEIN 6.7 GM/DL (6.4-8.2)
== END ==
LOC: M SFHCCLAY 13:21
PROVIDERS: ATTEND Family Medicine
DX: K80.20 Calculus of gallbladder without cholecystitis without obstruction (principal)

== ENCOUNTER 2020-12-14 17:14 | Inpatient (IN) | payer OTHER ==
[~2020-12-14] VITALS: Ht 154.9 cm; Wt 65.4 kg
[~2020-12-14 17:14] MED LIST changes: -AMOX875T2; -AUGM875T28 PO; -HYDR-3713; -HYDR-4571 PO; -HYDR200T3 PO
[2020-12-14] MEDS ORDERED: HYDR-3713 (17:36)
[2020-12-14] MEDS ORDERED: AMOX875T2 (17:36)
[2020-12-14] MEDS ORDERED: NS 1,000 ML IV ONE (18:55)
[2020-12-14] MEDS ORDERED: MORPHINE 4 MG/ML 1ML VIAL/SYRINGE (J2270) IV ONE (19:00)
[2020-12-14] MEDS ORDERED: ONDANSETRON 4MG/2ML VIAL IV ONE (19:00)
[2020-12-14 19:22] LABS: BASO % 0.3 % (0.0-1.0); EOS # 0.2 10^3/uL (0.0-0.5); EOS % 2.8 % (0.0-3.0); HEMATOCRIT 37.7 % (36.0-47.0); HEMOGLOBIN 13.2 g/dl (12.0-15.5); LYMPH # 1.5 10^3/uL (1.5-5.0); LYMPH % 26.1 % (24.0-44.0); MEAN CORPUSCULAR HEMOGLOBIN 31.2 pg (27.0-33.0); MEAN CORPUSCULAR VOLUME 89.1 fl (80.0-96.0); MONO # 0.4 10^3/uL (0.0-0.8); MONO % 7.1 % (2.0-8.0); NEUTROPHILS # 3.7 10^3/uL (1.5-8.5); NEUTROPHILS % 63.5 % (36.0-66.0); PLATELET COUNT, AUTOMATED 225 10^3/uL (150-450); RED BLOOD COUNT 4.23 10^6/uL (4.00-5.40); WHITE BLOOD COUNT 5.8 10^3/uL (4.0-10.0)
[2020-12-14 19:38] LABS: ALBUMIN 4.4 GM/DL (3.2-5.2); ALT/SGPT 18 U/L (12-78); BILIRUBIN,DIRECT 0.1 MG/DL (0.0-0.2); BILIRUBIN,TOTAL 0.4 MG/DL (0.2-1.0); BLOOD UREA NITROGEN 12 MG/DL (7-18); CALCIUM LEVEL 9.3 MG/DL (8.5-10.1); CARBON DIOXIDE LEVEL 27 MEQ/L (21-32); CHLORIDE LEVEL 105 MEQ/L (98-107); CREATININE FOR GFR 0.68 MG/DL (0.55-1.30); GLOMERULAR FILTRATION RATE > 60.0 (>60); GLUCOSE, FASTING 81 MG/DL (70-100); LIPASE 148 U/L (73-393); POTASSIUM SERUM 3.6 MEQ/L (3.5-5.1); SODIUM LEVEL 139 MEQ/L (136-145); TOTAL PROTEIN 7.6 GM/DL (6.4-8.2)
[2020-12-14] MEDS ORDERED: PANTOPRAZOLE 40MG VIAL (C9113 PER 1) IV ONE (20:30)
--- NOTE | 2020-12-14 20:39 | REPVR ---
PROCEDURE INFORMATION: Exam: US Abdomen, Limited; Right Upper Quadrant Exam date and time: 12/14/2020 7:50 PM Age: 30 years old Clinical indication: Abdominal pain; Epigastric; Additional info: Ruq pain, biliary colic TECHNIQUE: Imaging protocol: US abdomen. Real time ultrasound with image documentation. Limited exam focused on the right upper quadrant. COMPARISON: GALLBLADDER US 12/10/2020 10:29 PM FINDINGS: Liver: Normal. No masses. Gallbladder: Negative sonographic Hollingsworth's sign. Gallbladder wall thickness measures 2.7 mm. Small echogenic nonshadowing focus in the gallbladder. Common bile duct: Bile duct measures 5 mm. Pancreas: Limited view of the pancreas. Right kidney: Right kidney measures 9.9 x 6.2 x 4.1 cm. IMPRESSION: Possible small polyp/calculus in the gallbladder. Follow-up is suggested. No acute cholecystitis. Electronically signed by: Avtar Joe On 12/14/2020 20:39:26 PM
[2020-12-14] MEDS ORDERED: MIRE1IUD IU (22:02)
[2020-12-14] MEDS ORDERED: HYDR200T3 PO (22:02)
[2020-12-14] MEDS ORDERED: BUPR150T5 PO (22:02)
[2020-12-14] MEDS ORDERED: HYDR-4571 PO (22:02)
[2020-12-14] MEDS ORDERED: AUGM875T28 PO (22:02)
--- NOTE | 2020-12-14 22:37 | HPEPDOC ---
[facility] Medical History & Physical Date of Admission Dec 14, 2020 Date of Service: Dec 14, 2020 Other Provider Valeriy Wylie Attending Physician: RAINA OLIVAS MD History and Physical TIME OF SERVICE: 1130pm CHIEF COMPLAINT: pain HISTORY OF PRESENT ILLNESS: This 30 yr old F has been having 8/10 in severity RUQ abdominal pain that radiates to her back and is worse after eating since December 10 she was diagnosed with cholelithiasis and was referred to for an elective cholecystectomy on December 29, but she continues to have pain & vomit therefore she returned to the ER; MARSHALL La discussed the case w who will likely perform a cholecystectomy tomorrow. REVIEW OF SYSTEMS: 12-point review of systems negative except as listed in HPI PAST MEDICAL/ SURGICAL HISTORY: COVID 19 in Sep SLE (symptoms jt pain & hair loss) Post depression / anxiety Appendectomy Bunionectomy SOCIAL HISTORY: She smokes tobacco products, she said not really when asked if she drinks, but per chart review has a hx of alcohol and cocaine abuse FAMILY HISTORY: Mother uterine & ovarian CA, HTN / Sister- melanoma ALLERGIES: Please see below. HOME MEDICATIONS: Please see below. PHYSICAL EXAMINATION: Vital Signs Date Time Temp Pulse Resp B/P (MAP) Pulse Ox O2 Delivery O2 Flow Rate FiO2 12/14/20 17:14 98.7 81 22 121/67 (85) 100 Room Air GENERAL APPEARANCE: well nourished and developed HEENT: EOMI / no scleral icterus CARDIOVASCULAR: RRR/NMRG LUNGS: CTAB on RA ABDOMEN: + tattoo / post lap appy scars / soft / + BS / tympanic / + voluntary guarding / tender w palpation MUSCULOSKELETAL: NCAT / ROMIx 4 INTEGUMENT: not flushed or jaundice NEUROLOGICAL: speech not dysarthric PSYCHIATRIC: A&Ox 3 /able to understand and follow all commands LABORATORY DATA: 12/14/20 18:52 Immature Granulocyte % (Auto) 0.2, Neutrophils (%) (Auto) 63.5, Lymphocytes (%) (Auto) 26.1, Monocytes (%) (Auto) 7.1, Eosinophils (%) (Auto) 2.8, Basophils (%) (Auto) 0.3, Neutrophils # (Auto) 3.7, Lymphocytes # (Auto) 1.5, Monocytes # (Auto) 0.4, Eosinophils # (Auto) 0.2, Basophils # (Auto) 0.0, Nucleated Red Blood Cells % (auto) 0.0, Anion Gap 7L, Glomerular Filtration Rate > 60.0, Calcium Level 9.3, Total Bilirubin 0.4, Direct Bilirubin 0.1, Aspartate Amino Tr ansf (AST/SGOT) 10, Alanine Aminotransferase (ALT/SGPT) 18, Alkaline Phosphatase 43L, Total Protein 7.6, Albumin 4.4, Albumin/Globulin Ratio 1.4, Lipase 148 IMAGING: US gallbladder IMPRESSION: Possible small polyp/calculus in the gallbladder. Follow-up is suggested. No acute cholecystitis. MICROBIOLOGY: COVID neg ASSESSMENT: is a 30 yr old w SLE who presented w persistent abdominal pain and vomiting likely 2/2 biliary colic and will be admitted pending evaluation for lap romeo. PLAN: 1 Biliary colic /cholelithiasis No SIRS Plan: admit to medical floor /NPO w IVF / morphine for pain / Zofran for vomiting / f/u w 2 SLE Per pt stable Plan: c/w Plaquenil 3 Depression Plan: Wellbutrin 4 Polysubstance abuse Declined nicotine patch Plan: CIWA order set/ smoking cessation education DVT px w SCDs Dispo: home after at least 2 midnights stay Home Medications Scheduled Amoxicillin/Potassium Clav (Augmentin 875-125 Tablet) 1 Each Tablet, 875 MG PO BID STARTED ON 12/13/20 Bupropion Hcl (Bupropion HCl Sr) 150 Mg Tab.sr.12h, 150 MG PO DAILY Hydroxychloroquine Sulfate (Hydroxychloroquine Sulfate) 200 Mg Tablet, 300 MG PO DAILY Levonorgestrel (Mirena) 1 Each Iud, 20 MCG IU ASDIRECTED PLACED IN JANUARY 2019 Scheduled PRN Hydrocodone/Acetaminophen (Hydrocodone-Acetamin 5-325 mg) 1 Each Tablet, 1 TAB PO Q6H PRN for PAIN CAN TAKE SECOND TAB PER DOSE Allergies Coded Allergies: lamotrigine (Verified Allergy, Unknown, 12/10/20) A-FIB/CHADSVASC A-FIB History Current/History of A-Fib/PAF?: No Current PO Anticoag Therapy: No RAINA OLIVAS MD Dec 14, 2020 22:37
[2020-12-14] MEDS ORDERED: MORPHINE 2 MG/ML 1ML VIAL (J2270) IV PRN (22:40)
[2020-12-14] MEDS ORDERED: ONDANSETRON 4MG/2ML VIAL IV PRN (22:40)
[2020-12-15] VITALS (9 sets, daily range): BP systolic 95–137; BP diastolic 49–78
[2020-12-15] MEDS: LR 1,000 ML IV SCH ×3 (00:53→06:48)
[2020-12-15] MEDS ORDERED: LORazepam 2 MG TAB PO PRN (01:20)
[2020-12-15] MEDS: THIAMINE 100 MG TAB PO SCH ×2 (01:59→08:39)
[2020-12-15 03:40] LABS: RSV AMPLIFICATION NEGATIVE (NEGATIVE)
[2020-12-15 07:37] LABS: HEMATOCRIT 32.3 % (36.0-47.0); HEMOGLOBIN 11.4 g/dl (12.0-15.5); MEAN CORPUSCULAR HEMOGLOBIN 31.8 pg (27.0-33.0); MEAN CORPUSCULAR HGB CONC 35.3 g/dl (32.0-36.5); PLATELET COUNT, AUTOMATED 167 10^3/uL (150-450); RED BLOOD COUNT 3.59 10^6/uL (4.00-5.40); WHITE BLOOD COUNT 3.9 10^3/uL (4.0-10.0)
[2020-12-15 08:06] LABS: BLOOD UREA NITROGEN 10 MG/DL (7-18); CALCIUM LEVEL 8.5 MG/DL (8.5-10.1); CARBON DIOXIDE LEVEL 29 MEQ/L (21-32); CHLORIDE LEVEL 109 MEQ/L (98-107); CREATININE FOR GFR 0.61 MG/DL (0.55-1.30); GLOMERULAR FILTRATION RATE > 60.0 (>60); GLUCOSE, FASTING 86 MG/DL (70-100); POTASSIUM SERUM 3.7 MEQ/L (3.5-5.1); SODIUM LEVEL 141 MEQ/L (136-145)
[2020-12-15] MEDS ORDERED: MULTIVITAMINS/MINERALS THERAP 1 TAB PO SCH (09:00)
[2020-12-15] MEDS ORDERED: FOLIC ACID 1 MG TAB PO SCH (09:00)
--- NOTE | 2020-12-15 09:57 | CR.PDOC ---
General Surgery Consultation Date of Consultation 12/15/20 History and Physical CONSULT REPORT FOR: hospitalist service REASON FOR CONSULTATION: abdominal pain, cholecystitis HISTORY OF PRESENT ILLNESS: Patient is a 30-year-old female otherwise healthy who has been coming back and forth to the emergency room for the past couple weeks with complaints of an almost persistent epigastric and right upper quadrant pain for the past 2 weeks. 2 cholelithiasis/cholecystitis. He was actually seen by Dr. Montanez last Friday after her emergency room visits and she was scheduled to undergo laparoscopic cholecystectomy in December 29. She called the office yesterday complaining that she could not hold anything down, every time she eats or drinks that she would have severe epigastric and right upper quadrant pain with associated nausea and vomiting. She denies fevers or chills. He has been placed on Augmentin to try to calm her cholecystitis while awaiting surgery with no adequate response. She went to the emergency room last night, subsequently admitted to the hospital. PAST MEDICAL HISTORY: 1. COVID 19 in Sep SLE (symptoms jt pain & hair loss) Post depression / anxiety PAST SURGICAL HISTORY: INCLUDES: 1. Laparoscopic appendectomy 2. Bunion surgery PREVIOUS ANESTHESIA REACTIONS: Denies ALLERGIES: Please see below. FAMILY HISTORY: No significant family history for anesthetic reaction. HOME MEDICATIONS: Please see below. REVIEW OF SYSTEMS: GENERAL: Denies fevers or chills, symptomatic from her gallbladder for the past 2 weeks. HEENT: Denies problems with vision or hearing. NECK: Denies any neck pain CARDIOVASCULAR: Denies chest pain and palpitations. MUSCULOSKELETAL: Denies arthralgias, back pain and thrombophlebitis. SKIN: Denies rash. Reports some history of allergic reaction to tape probably a Tegaderm NEUROLOGIC: Denies headache, stroke and transient ischemic attack. PSYCHIATRIC: Reports history of depression, depression. ENDOCRINE: Denies thyroid disease. HEMATOLOGY/ONCOLOGY: Denies bleeding or clotting disorder. HEART: Denies any chest pains, palpitations, paroxysmal dyspnea, orthopnea. PULMONARY: Denies chronic cough, dyspnea and wheezing. GASTROINTESTINAL: See HPI. GENITOURINARY: Denies dysuria, frequency, hematuria and nocturia. ENDOCRINE: Denies polydipsia, polyphagia, polyuria, heat or cold intolerance. INFECTIOUS: Had Covid infection in September, currently denies any shortness of breath. NUTRITION: Reports poor appetite secondary to her pain. PHYSICAL EXAMINATION: VITALS SIGNS: Please see below. GENERAL APPEARANCE: Patient seen sitting up on the bed, relatively comfortable. SKIN: Warm and dry, no jaundice. HEENT: Normocephalic, atraumatic. [place] palpebral conjunctiva, anicteric sclerae. Lips and mucosa appear moist. NECK: Supple, no thyromegaly. No obvious jugular venous distention. LUNGS: Clear to auscultation bilaterally. No wheezing appreciated. HEART: No chest wall abnormalities. Regular rate and rhythm with no murmurs appreciated. ABDOMEN: Abdomen is relatively flat, nondistended, soft, tender to palpation over the epigastric and right upper quadrant area, positive Hollingsworth sign, nontender left side of the abdomen and the lower abdomen. Prior laparoscopic port sites noted. No umbilical or groin herniations. EXTREMITIES: No significant extremity edema ANCILLARIES: . LABORATORY DATA: Please see below. IMAGING STUDIES: . Ultrasound of the gallbladder, does not demonstrate severe inflammation around the gallbladder wall but I do note the presence of what most likely is a stone at the neck of the gallbladder IMPRESSION AND PLAN: Cholelithiasis with acute cholecystitis Patient continues to be symptomatic and trial of Augmentin was not able to calm her gallbladder down enough for her to tolerate anything and could not await her planned surgery on December 29. She is admitted under the hospitalist service. Plan to perform laparoscopic cholecystectomy during this admission. I reviewed with her the details of the procedure, risks and benefits specifically risks for bile duct injury, bile leakage, small possibility of converting to open surgery. C onsent was obtained from patient. Vital Signs Vital Signs Date Time Temp Pulse Resp B/P (MAP) Pulse Ox O2 Delivery O2 Flow Rate FiO2 12/15/20 08:00 74 102/54 12/15/20 06:00 98.1 20 99 Room Air I&Os I&O- Last 24 Hours up to 6 AM 12/15/20 05:59 Intake Total 1000 ml Balance 1000 ml Laboratory Data Labs 24H Laboratory Tests 2 12/14/20 18:52: Immature Granulocyte % (Auto) 0.2, Neutrophils (%) (Auto) 63.5, Lymphocytes (%) (Auto) 26.1, Monocytes (%) (Auto) 7.1, Eosinophils (%) (Auto) 2.8, Basophils (%) (Auto) 0.3, Neutrophils # (Auto) 3.7, Lymphocytes # (Auto) 1.5, Monocytes # (Auto) 0.4, Eosinophils # (Auto) 0.2, Basophils # (Auto) 0.0, Nucleated Red Blood Cells % (auto) 0.0, Anion Gap 7L, Glomerular Filtration Rate > 60.0, Calcium Level 9.3, Total Bilirubin 0.4, Direct Bilirubin 0.1, Aspartate Amino Transf (AST/SGOT) 10, Alanine Aminotransferase (ALT/SGPT) 18, Alkaline Phosphatase 43L, Total Protein 7.6, Albumin 4.4, Albumin/Globulin Ratio 1.4, Lipase 148 12/15/20 00:48: Bedside Glucose (Misc Panel) 88 12/15/20 02:56: Coronavirus (COVID-19)(PCR) NEGATIVE, Influenza Type A (RT-PCR) NEGATIVE, Influenza Type B (RT-PCR) NEGATIVE, Respiratory Syncytial Virus (PCR) NEGATIVE 12/15/20 06:17: Bedside Glucose (Misc Panel) 92 12/15/20 06:48: Nucleated Red Blood Cells % (auto) 0.0, Anion Gap 3L, Glomerular Filtration Rate > 60.0, Calcium Level 8.5 CBC/BMP Laboratory Tests 12/14/20 18:52 12/15/20 06:48 Home Medications Scheduled Amoxicillin/Potassium Clav (Augmentin 875-125 Tablet) 1 Each Tablet, 875 MG PO BID, (Reported) STARTED ON 12/13/20 Bupropion Hcl (Bupropion HCl Sr) 150 Mg Tab.sr.12h, 150 MG PO DAILY, (Reported) Hydroxychloroquine Sulfate (Hydroxychloroquine Sulfate) 200 Mg Tablet, 300 MG PO DAILY, (Reported) Levonorgestrel (Mirena) 1 Each Iud, 20 MCG IU ASDIRECTED, (Reported) PLACED IN JANUARY 2019 Scheduled PRN Hydrocodone/Acetaminophen (Hydrocodone-Acetamin 5-325 mg) 1 Each Tablet, 1 TAB PO Q6H PRN for PAIN, (Reported) CAN TAKE SECOND TAB PER DOSE Allergies Coded Allergies: lamotrigine (Verified Allergy, Unknown, 12/10/20) GUS VIDES MD Dec 15, 2020 09:57
[2020-12-15] MEDS ORDERED: ONDANSETRON 4MG/2ML VIAL IV PRN ×2 (10:15→14:55)
[2020-12-15] MEDS ORDERED: ACETAMINOPHEN *IV* 1,000 MG in IV 1 EA IV ONE (10:30)
[2020-12-15] MEDS ORDERED: KETOROLAC 30 MG/ML 1ML VIAL IV ONE (10:30)
[2020-12-15] MEDS ORDERED: BUPIVACAINE HCL 0.25% 30ML VIAL As Ordered ONE (10:38)
[2020-12-15] MEDS ORDERED: LIDOCAINE 1% SDV 30ML VIAL As Ordered ONE (10:38)
--- NOTE | 2020-12-15 10:40 | IPNPDOC ---
Subjective Date Seen The patient was seen on 12/15/20. Subjective Chief Complaint/HPI Complains of headache this morning. Also continues to have right upper quadrant pain. Objective Physical Examination General Exam: Positive: Alert, Cooperative, No Acute Distress Eye Exam: Positive: PERRLA, Conjunctiva & lids normal, EOMI; Negative: Sclera icteric ENT Exam: Positive: Atraumatic, Mucous membr. moist/pink, Pharynx Normal Neck Exam: Positive: Supple; Negative: JVD, thyromegaly Chest Exam: Positive: Clear to auscultation, Normal air movement Heart Exam: Positive: Rate Normal, Regular Rhythm, Normal S1, Normal S2; Negative: Murmurs, Rubs Abdomen Exam: Positive: BS Hyperactive, Soft, Tenderness (right upper quadrant), Other (rebound in the right upper quadrant); Negative: Hepatospenomegaly Extremity Exam: Negative: Clubbing, Cyanosis, Edema Assessment /Plan Assessment This 30 yr old F has been having 8/10 in severity RUQ abdominal pain that radiates to her back and is worse after eating since December 10 she was diagnosed with cholelithiasis and was referred to for an elective cholecystectomy on December 29, but she continues to have pain & vomit therefore she returned to the ER. Planned for cholecystectomy on 12/15/20 Biliary colic /cholelithiasis No SIRS morphine, zofran, NPO, IVF. surgical consult Dr Oates. SLE Per pt stable c/w Plaquenil Depression Wellbutrin H/o Polysubstance abuse Declined nicotine patch Does not drink any alcohol at present will mariel GALVAN. COVID-19 in Sep 2020 Plan/VTE VTE Prophylaxis Ordered?: Yes VS, I&O, 24H, Fishbone Vital Signs/I&O Vital Signs Date Time Temp Pulse Resp B/P (MAP) Pulse Ox O2 Delivery O2 Flow Rate FiO2 12/15/20 08:00 74 102/54 12/15/20 06:00 98.1 20 99 Room Air I&O- Last 24 Hours up to 6 AM 12/15/20 06:00 Intake Total 1000 ml Balance 1000 ml Laboratory Data 24H LABS Laboratory Tests 2 12/14/20 18:52: Immature Granulocyte % (Auto) 0.2, Neutrophils (%) (Auto) 63.5, Lymphocytes (%) (Auto) 26.1, Monocytes (%) (Auto) 7.1, Eosinophils (%) (Auto) 2.8, Basophils (%) (Auto) 0.3, Neutrophils # (Auto) 3.7, Lymphocytes # (Auto) 1.5, Monocytes # (Auto) 0.4, Eosinophils # (Auto) 0.2, Basophils # (Auto) 0.0, Nucleated Red Blood Cells % (auto) 0.0, Anion Gap 7L, Glomerular Filtration Rate > 60.0, Calcium Level 9.3, Total Bilirubin 0.4, Direct Bilirubin 0.1, Aspartate Amino Transf (AST/SGOT) 10, Alanine Aminotransferase (ALT/SGPT) 18, Alkaline Phosphatase 43L, Total Protein 7.6, Albumin 4.4, Albumin/Globulin Ratio 1.4, Lipase 148 12/15/20 00:48: Bedside Glucose (Misc Panel) 88 12/15/20 02:56: Coronavirus (COVID-19)(PCR) NEGATIVE, Influenza Type A (RT-PCR) NEGATIVE, Influenza Type B (RT-PCR) NEGATIVE, Respiratory Syncytial Virus (PCR) NEGATIVE 12/15/20 06:17: Bedside Glucose (Misc Panel) 92 12/15/20 06:48: Nucleated Red Blood Cells % (auto) 0.0, Anion Gap 3L, Glomerular Filtration Rate > 60.0, Calcium Level 8.5 CBC/BMP Laboratory Tests 12/14/20 18:52 12/15/20 06:48 BERT LITTLE MD Dec 15, 2020 10:35
[2020-12-15] MEDS: PANTOPRAZOLE 40MG VIAL (C9113 PER 1) IV SCH (11:50)
[2020-12-15] MEDS ORDERED: dexameTHASONE 4 MG/ML 1ML VIAL (J1100 PER 1MG) As Ordered ONE (12:19)
[2020-12-15] MEDS ORDERED: ONDANSETRON 4MG/2ML VIAL As Ordered ONE (12:19)
[2020-12-15] MEDS ORDERED: propofoL 200 MG/20 ML VIAL As Ordered ONE (12:19)
[2020-12-15] MEDS ORDERED: SUGAMMADEX SODIUM 500 MG/5 ML VIAL (BRIDION) As Ordered ONE (12:19)
[2020-12-15] MEDS ORDERED: fentaNYL 100 MCG/2 ML INJECTION (J3010) As Ordered ONE ×3 (12:19→14:47)
[2020-12-15] MEDS ORDERED: ROCURONIUM BROMIDE 50 MG/5 ML VIAL As Ordered ONE (12:19)
[2020-12-15] MEDS ORDERED: KETOROLAC 60MG 2ML VIAL As Ordered ONE (12:19)
[2020-12-15] MEDS ORDERED: ACETAMINOPHEN 1000MG 100ML IV BTL (OFIRMEV) (J0131 PER 10MG) As Ordered ONE (12:19)
[2020-12-15] MEDS ORDERED: MIDAZOLAM INJ 2MG/2ML VIAL (J2250 PER 1MG) As Ordered ONE (12:19)
[2020-12-15] MEDS ORDERED: LIDOCAINE 2% 100MG/5ML SDV (FOR ANES.) As Ordered ONE (12:19)
[2020-12-15] MEDS: buPROPion **SR TABLET** (ZYBAN) 150MG PO SCH (13:00)
[2020-12-15] MEDS: HYDROXYCHLOROQUINE 200 MG TAB PO SCH (13:00)
[2020-12-15] MEDS ORDERED: UNASYN 3 GM VIAL As Ordered ONE (13:22)
[2020-12-15] MEDS ORDERED: LIDOCAINE 5% OINT 30GM TUBE As Ordered ONE (13:27)
[2020-12-15] MEDS ORDERED: KETOROLAC 30 MG/ML 1ML VIAL IV PRN (14:35)
[2020-12-15] MEDS: fentaNYL 100 MCG/2 ML INJECTION (J3010) IV PRN ×2 (14:47→14:54)
[2020-12-15] MEDS ORDERED: PILL CUTTER 1 EACH XX PRN (14:50)
[2020-12-15] MEDS ORDERED: oxyCODONE 5MG TAB PO PRN (14:55)
[2020-12-15] MEDS ORDERED: HYDROMORPHONE HCL 0.5 MG/ 0.5 ML SYRINGE (J1170 PER 1) IV PRN (14:55)
[2020-12-15] MEDS ORDERED: LR 1,000 ML IV SCH (14:55)
[2020-12-15] MEDS: NORCO, ANEXSIA 5/325MG TABLET (HYDROcodone/ACETAMINOPHEN) PO PRN ×2 (18:07→22:59)
[2020-12-16 06:00] VITALS: BP 103/59
[2020-12-16 06:19] LABS: BASO % 0.1 % (0.0-1.0); EOS # 0.1 10^3/uL (0.0-0.5); EOS % 0.7 % (0.0-3.0); HEMATOCRIT 34.5 % (36.0-47.0); HEMOGLOBIN 12.2 g/dl (12.0-15.5); LYMPH # 1.2 10^3/uL (1.5-5.0); LYMPH % 17.3 % (24.0-44.0); MEAN CORPUSCULAR HGB CONC 35.4 g/dl (32.0-36.5); MEAN CORPUSCULAR VOLUME 87.6 fl (80.0-96.0); MONO # 0.6 10^3/uL (0.0-0.8); MONO % 8.9 % (2.0-8.0); NEUTROPHILS # 5.2 10^3/uL (1.5-8.5); NEUTROPHILS % 72.7 % (36.0-66.0); PLATELET COUNT, AUTOMATED 206 10^3/uL (150-450); RED BLOOD COUNT 3.94 10^6/uL (4.00-5.40); WHITE BLOOD COUNT 7.1 10^3/uL (4.0-10.0)
--- NOTE | 2020-12-16 06:19 | ROOPDOC ---
[facility] Report Of Operation Report of Operation DATE OF PROCEDURE: 12/15/20 PREPROCEDURE DIAGNOSES: cholelithiasis, acute cholecystitis. POSTPROCEDURE DIAGNOSES: chronic cholecystitis. PROCEDURE: Laparoscopic Cholecystectomy. SURGEON: Froylan Oates MD ORNAMENTAL METALWORK DESIGNER: ANESTHESIA: General Anesthesia. ESTIMATED BLOOD LOSS: Approximately 10 mL. COMPLICATIONS: none REMARKS: 30 F complaining of 2 weeks of persistent epigastric and right upper quadrant abdominal pain, food intolerance, nausea and vomiting, (+)cholelithiasis on US.. PROCEDURE NOTE: distended gallbladder, minimally thickened wall, black thickened bile, I did not feel any stones within the gb. DESCRIPTION OF PROCEDURE: Patient was given Unasyn 3 g IV preoperatively for wound prophylaxis. She is brought to the operating room, placed supine on the operating room table. TEDs and bilateral sequential compression devices placed on both lower extremities were DVT prophylaxis. Gen. endotracheal anesthesia started. Her left arm tucked. Her abdomen prepped and draped in the usual sterile fashion. We paused for a surgical timeout using both pre-incision safety checklist to verify correct patient, procedure site and additional clinical information prior to beginning the procedure. We entered the abdomen through the bottom of the umbilicus which area the prior incision. A Veress needle was inserted. Intra-abdominal placement confirmed with saline drop technique. CO2 insufflation was started with a noted that there was an even insufflation more on the bottom than on the top of the abdomen. Using the same incision, a 5 mm optical port was placed under direct vision of laparoscope. On entering noted preperitoneal insufflation maintained on some of the peritoneum on the lower abdomen but there was no any intra-abdominal injury. Insufflation continue to pressure 15 mmHg. She was positioned on a reverse Trendelenburg tilted towards the left side to further expose the gallbladder. Gallbladder is noted at the markedly distended but no active acute inflammation noted. The working ports were established with a 10 mm epigastric port, right midclavicular port and right anterior axillary port. The fundus of the gallbladder was grasped and this is elevated sparely exposing the neck of the gallbladder. This was partially obscured by a floppy of the left lobe of the liver. The infundibulum was retracted laterally and the hepatocystic triangle was approached initially with sharp dissection with a hook cautery opening up the peritoneal envelope and then blunt dissection with the [place] and instrument circumferentially dissecting both cystic duct and cystic artery n oted in their relative anatomic positions. I palpated the cystic duct for any stones and milked this back to the gallbladder. The posterior cystic plate at the neck the gallbladder was further dissected medial to lateral. Critical view of safety was achieved with this dissection and this was photo documented. The cystic artery was divided after clipping. The cystic duct was clipped 4 times and divided in between the 4 clips. The rest of the gallbladder was dissected free off the liver bed. There was a posterior branch of the cystic artery and a note running posteriorly and lateral to the gallbladder which I avoided. During dissection of about the upper body of the gallbladder I did enter the gallbladder posteriorly and this leaked dark thickened bile. This was controlled and the rest of the gallbladder dissected off the liver bed. AnEndo Catch bag and retrieved through the epigastric port site. On reentry, the leaked bile was suctioned off and irrigated until we had clear return. The clips were examined and noted to be in placed was no bleeding at the gallbladder bed. The abdomen was then deflated. All ports were removed. The epigastric fascial defect was closed with 0 Vicryl in a mattress fashion. The rest of the incisions closed with 4-0 Monocryl in subcuticular fashion. Steri-Strips, gauze dressings and Tegaderm stent placed covered incisions. Patient was then promptly awake and ext ubated and brought to recovery room in stable condition. . FROYLAN OATES MD Dec 16, 2020 06:19
[2020-12-16 06:39] LABS: BLOOD UREA NITROGEN 7 MG/DL (7-18); CALCIUM LEVEL 8.3 MG/DL (8.5-10.1); CARBON DIOXIDE LEVEL 28 MEQ/L (21-32); CHLORIDE LEVEL 107 MEQ/L (98-107); CREATININE FOR GFR 0.65 MG/DL (0.55-1.30); GLOMERULAR FILTRATION RATE > 60.0 (>60); GLUCOSE, FASTING 113 MG/DL (70-100); POTASSIUM SERUM 3.8 MEQ/L (3.5-5.1); SODIUM LEVEL 138 MEQ/L (136-145)
[2020-12-16] MEDS: NORCO, ANEXSIA 5/325MG TABLET (HYDROcodone/ACETAMINOPHEN) PO PRN (06:40)
[2020-12-16] MEDS: buPROPion **SR TABLET** (ZYBAN) 150MG PO SCH (08:07)
[2020-12-16] MEDS: HYDROXYCHLOROQUINE 200 MG TAB PO SCH (08:07)
[2020-12-16] MEDS: PANTOPRAZOLE 40MG VIAL (C9113 PER 1) IV SCH (11:20)
[2020-12-16 14:00] VITALS: BP 103/60
--- NOTE | 2020-12-16 17:58 | IPN ---
PROGRESS NOTE DATE: 12/16/2020 HISTORY: Patient is now postoperative day #1 from a laparoscopic cholecystectomy performed by Dr. Oates. She reports some abdominal soreness, as would be anticipated. He described an appearance consistent with chronic cholecystitis in his operative report. She has been tolerating a diet with no nausea or vomiting and has voided without difficulty. Vital signs show that she has been afebrile over the past day. Her pulse is ranging between 75 and 95 generally. Blood pressure is good and her room air oxygen saturation is normal. Intake and output shows that yesterday she had 2400 recorded in with 400 recorded out, with several other voids not recorded. PHYSICAL EXAMINATION: Patient is sitting upright in the bed looking quite comfortable at rest. Skin is warm and dry. Heart and lung exams are unremarkable. The abdomen shows four gauze and operative site dressings on her incisions. There is no blood beneath the operative sites. She has active bowel sounds and the abdomen is soft without any undue tenderness. LABORATORY STUDIES: Laboratory studies today show a white count of 7, hemoglobin 12, hematocrit 34 and a platelet count of 206,000. Her chemistry profile shows normal electrolytes, BUN, creatinine and a glucose of 115. IMPRESSION: Patient is doing very well postoperative day #1 from her laparoscopic cholecystectomy. PLAN: I spoke with Dr. Mar, who is the primary provider and recommended that the patient be discharged. I counseled the patient regarding her diet. I recommended she try to avoid particularly greasy or rich foods for a while until she sees how her body is going to tolerate this. She was advised against any strenuous physical activity or heavy lifting for about two weeks. 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 She has some Vicodin-equivalent tablets that she can take on an as needed basis for pain, but I recommended she try to get by with some [id number] nonnarcotic medications. She can shower as desired and when the seals are broken on her operative site dressings, she should remove these at that time. She should follow up in the office with Dr. Oates in about a week.
== END 2020-12-16 15:25 | disposition home or self-care (01) | DRG 263 ==
LOC: M ED 17:14 → M ED INP 22:36 → ENRESERV 23:46 → M MS5PR 12-15 00:42
PROVIDERS: ADMIT Internal Medicine; ATTEND Internal Medicine Nephrology
PROC: 0FT44ZZ Resection of Gallbladder, Percutaneous Endoscopic Approach (ICD-10-PCS; principal; 2020-12-15 12:30)
DX: K80.12 Calculus of gallbladder with acute and chronic cholecystitis without obstruction (principal); M32.9 Systemic lupus erythematosus, unspecified; F32.9 Major depressive disorder, single episode, unspecified; Z79.899 Other long term (current) drug therapy; Z88.8 Allergy status to other drugs, medicaments and biological substances; F17.200 Nicotine dependence, unspecified, uncomplicated

== ENCOUNTER → 2021-02-23 | Outpatient (REF) | payer OTHER ==
[~2021-02-23] MED LIST changes: +AMOX875T2; +AUGM875T28 PO; +HYDR-3713; +HYDR-4571 PO; +HYDR200T3 PO
== END ==
LOC: M SFHCCLAY 09:54
PROVIDERS: ATTEND Physician Assistant
DX: R30.0 Dysuria (principal)

== ENCOUNTER → 2021-03-13 | Outpatient (REF) | payer OTHER | LOC: M SFHCCLAY 11:22 | PROVIDERS: ATTEND Nurse Practitioner Family | DX: R30.0 Dysuria (principal) ==

== ENCOUNTER → 2021-05-25 | Outpatient (CLI) | payer OTHER ==
--- NOTE | 2021-05-25 13:59 | REP ---
INDICATION: M06.4 INFLAMMATORY POLYARTHRITIS. COMPARISON: Comparison radiographs of the hands are from August 10, 2019. TECHNIQUE: Four views, bilateral hand series. FINDINGS: Four views of each hand are provided. These show overall normal mineralization. There are small subcortical cysts in the distal end of the 3rd metacarpals on both sides. These are unchanged. Joint spaces are preserved. Periarticular soft tissues are unremarkable. No other finding. No erosive change.. IMPRESSION: Negative bilateral hand series. <Electronically signed by Pranay Saldana > 05/25/21 0922
--- NOTE | 2021-05-25 14:01 | REP ---
INDICATION: M06.4 INFLAMMATORY POLYARTHRITIS. COMPARISON: None. FINDINGS: Four views of each foot are provided. Overall mineralization pattern is normal. The patient is status post bunion repair 1st metatarsal on the left side. 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 No erosive changes seen on either side. No calcaneal erosion or spurring is seen. Soft tissues are unremarkable. IMPRESSION: No acute bony abnormality. Status post left 1st metatarsal bunion repair. Mild left MTP joint spurring. <Electronically signed by Pranay Saldana > 05/25/21 2021
== END ==
LOC: M CLY 13:17
PROVIDERS: ATTEND Internal Medicine Rheumatology
DX: M06.4 Inflammatory polyarthropathy (principal); M25.775 Osteophyte, left foot

== ENCOUNTER → 2021-05-25 | Outpatient (REF) | payer OTHER | LOC: M SFHCRHEU 13:10 | PROVIDERS: ATTEND Internal Medicine Rheumatology | DX: Z53.9 Procedure and treatment not carried out, unspecified reason (principal); M06.4 Inflammatory polyarthropathy; R76.8 Other specified abnormal immunological findings in serum ==

== ENCOUNTER → 2021-05-29 | Outpatient (REF) | payer OTHER ==
[2021-05-29 16:18] LABS: BASO % 0.4 % (0.0-1.0); EOS # 0.2 10^3/uL (0.0-0.5); EOS % 2.9 % (0.0-3.0); HEMATOCRIT 40.7 % (36.0-47.0); HEMOGLOBIN 14.2 g/dl (12.0-15.5); LYMPH # 1.4 10^3/uL (1.5-5.0); LYMPH % 25.5 % (24.0-44.0); MEAN CORPUSCULAR HEMOGLOBIN 31.4 pg (27.0-33.0); MEAN CORPUSCULAR HGB CONC 34.9 g/dl (32.0-36.5); MONO # 0.4 10^3/uL (0.0-0.8); MONO % 7.7 % (2.0-8.0); NEUTROPHILS # 3.5 10^3/uL (1.5-8.5); NEUTROPHILS % 63.3 % (36.0-66.0); PLATELET COUNT, AUTOMATED 221 10^3/uL (150-450); RED BLOOD COUNT 4.52 10^6/uL (4.00-5.40); WHITE BLOOD COUNT 5.5 10^3/uL (4.0-10.0)
[2021-05-29 16:40] LABS: ALBUMIN 4.1 GM/DL (3.2-5.2); ALT/SGPT 23 U/L (12-78); BILIRUBIN,TOTAL 0.8 MG/DL (0.2-1.0); BLOOD UREA NITROGEN 10 MG/DL (7-18); CALCIUM LEVEL 9.2 MG/DL (8.5-10.1); CARBON DIOXIDE LEVEL 29 MEQ/L (21-32); CHLORIDE LEVEL 106 MEQ/L (98-107); CREATININE FOR GFR 0.68 MG/DL (0.55-1.30); GLOMERULAR FILTRATION RATE > 60.0 (>60); GLUCOSE, FASTING 82 MG/DL (70-100); POTASSIUM SERUM 3.7 MEQ/L (3.5-5.1); SODIUM LEVEL 140 MEQ/L (136-145); TOTAL PROTEIN 7.2 GM/DL (6.4-8.2)
[2021-05-29 16:48] LABS: THYROGLOBULIN ANTIBODY < 15.0 U/ML (<60.0); THYROID PEROXIDASE ANTIBODY < 28.0 U/ML (<60.0)
[2021-05-29 16:55] LABS: ERYTHROCYTE SEDIMENTATION RATE 5 mm/hr (0-20)
== END ==
LOC: M SFHCRHEU 11:47
PROVIDERS: ATTEND Internal Medicine Rheumatology
DX: M06.4 Inflammatory polyarthropathy (principal); R76.8 Other specified abnormal immunological findings in serum

== ENCOUNTER → 2021-08-06 | Outpatient (REF) | payer OTHER ==
[2021-08-06 12:50] LABS: BASO % 0.2 % (0.0-1.0); EOS # 0.1 10^3/uL (0.0-0.5); EOS % 1.9 % (0.0-3.0); HEMATOCRIT 39.9 % (36.0-47.0); HEMOGLOBIN 13.7 g/dl (12.0-15.5); LYMPH # 1.2 10^3/uL (1.5-5.0); LYMPH % 25.9 % (24.0-44.0); MEAN CORPUSCULAR HGB CONC 34.3 g/dl (32.0-36.5); MEAN CORPUSCULAR VOLUME 90.3 fl (80.0-96.0); MONO # 0.5 10^3/uL (0.0-0.8); MONO % 9.9 % (2.0-8.0); NEUTROPHILS # 2.9 10^3/uL (1.5-8.5); NEUTROPHILS % 61.7 % (36.0-66.0); PLATELET COUNT, AUTOMATED 188 10^3/uL (150-450); RED BLOOD COUNT 4.42 10^6/uL (4.00-5.40); WHITE BLOOD COUNT 4.8 10^3/uL (4.0-10.0)
[2021-08-06 13:18] LABS: ALBUMIN 4.2 GM/DL (3.2-5.2); ALT/SGPT 20 U/L (12-78); BLOOD UREA NITROGEN 9 MG/DL (7-18); CALCIUM LEVEL 9.3 MG/DL (8.5-10.1); CARBON DIOXIDE LEVEL 28 MEQ/L (21-32); CHLORIDE LEVEL 105 MEQ/L (98-107); GLOMERULAR FILTRATION RATE > 60.0 (>60); GLUCOSE, FASTING 92 MG/DL (70-100); POTASSIUM SERUM 3.7 MEQ/L (3.5-5.1); SODIUM LEVEL 139 MEQ/L (136-145); TOTAL PROTEIN 7.3 GM/DL (6.4-8.2)
[2021-08-06 13:31] LABS: ERYTHROCYTE SEDIMENTATION RATE 3 mm/hr (0-20)
== END ==
LOC: M SFHCRHEU 10:09
PROVIDERS: ATTEND Internal Medicine Rheumatology
DX: M06.4 Inflammatory polyarthropathy (principal); R76.8 Other specified abnormal immunological findings in serum; Z79.899 Other long term (current) drug therapy

== ENCOUNTER → 2021-12-18 | Outpatient (REF) | payer OTHER ==
[2021-12-18 16:23] LABS: BASO % 0.4 % (0.0-1.0); EOS # 0.1 10^3/uL (0.0-0.5); EOS % 2.4 % (0.0-3.0); HEMATOCRIT 39.9 % (36.0-47.0); HEMOGLOBIN 14.1 g/dl (12.0-15.5); LYMPH # 1.3 10^3/uL (1.5-5.0); LYMPH % 28.3 % (24.0-44.0); MEAN CORPUSCULAR HEMOGLOBIN 31.3 pg (27.0-33.0); MEAN CORPUSCULAR HGB CONC 35.3 g/dl (32.0-36.5); MEAN CORPUSCULAR VOLUME 88.7 fl (80.0-96.0); MONO # 0.5 10^3/uL (0.0-0.8); NEUTROPHILS # 2.7 10^3/uL (1.5-8.5); NEUTROPHILS % 58.5 % (36.0-66.0); PLATELET COUNT, AUTOMATED 208 10^3/uL (150-450); WHITE BLOOD COUNT 4.6 10^3/uL (4.0-10.0)
[2021-12-18 16:52] LABS: ALBUMIN 4.1 GM/DL (3.2-5.2); ALT/SGPT 133 U/L (12-78); AMYLASE 64 U/L (25-115); BILIRUBIN,TOTAL 0.8 MG/DL (0.2-1.0); BLOOD UREA NITROGEN 8 MG/DL (7-18); CALCIUM LEVEL 9.1 MG/DL (8.5-10.1); CARBON DIOXIDE LEVEL 30 MEQ/L (21-32); CHLORIDE LEVEL 105 MEQ/L (98-107); GLOMERULAR FILTRATION RATE > 60.0 (>60); GLUCOSE, FASTING 84 MG/DL (70-100); LIPASE 102 U/L (73-393); POTASSIUM SERUM 3.7 MEQ/L (3.5-5.1); SODIUM LEVEL 139 MEQ/L (136-145)
[2021-12-18 17:09] LABS: HEPATITIS B SURFACE ANTIGEN NEGATIVE (NEGATIVE)
[2021-12-18 17:36] LABS: HEPATITIS C VIRUS ABY INDEX 0.2 INDEX (<0.8)
[2021-12-18 17:37] LABS: HEPATITIS B CORE ANTIBODY IGM NEGATIVE (NEGATIVE)
== END ==
LOC: M SFHCCLAY 11:29
PROVIDERS: ATTEND Family Medicine
DX: R10.13 Epigastric pain (principal); R74.8 Abnormal levels of other serum enzymes

== ENCOUNTER → 2022-01-28 | Outpatient (CLI) | payer OTHER ==
[~2022-01-28] MED LIST changes: +BUPR-71 PO; -BUPR150T5 PO
== END ==
LOC: M CLY 13:45
PROVIDERS: ATTEND Physician Assistant
DX: S99.922A Unspecified injury of left foot, initial encounter (principal); M25.775 Osteophyte, left foot; X58.XXXA Exposure to other specified factors, initial encounter; Y92.9 Unspecified place or not applicable; Y93.9 Activity, unspecified; Y99.9 Unspecified external cause status

== ENCOUNTER → 2022-02-01 | Outpatient (REF) | payer OTHER ==
[2022-02-01 16:09] LABS: APPEARANCE, URINE CLEAR (CLEAR); BACTERIA, URINE AUTO NEGATIVE (NEGATIVE); BILIRUBIN, URINE AUTO NEGATIVE (NEGATIVE); BLOOD, URINE BLOOD NEGATIVE (NEGATIVE); COLOR, URINE YELLOW (YELLOW); GLUCOSE, URINE (UA) AUTO NEGATIVE (NEGATIVE); KETONE, URINE AUTO NEGATIVE (NEGATIVE); LEUKOCYTE ESTERASE, URINE AUTO NEGATIVE (NEGATIVE); NITRITE, URINE AUTO NEGATIVE (NEGATIVE); PROTEIN, URINE AUTO NEGATIVE (NEGATIVE); RBC, URINE AUTO 0 /HPF (0-3); SPECIFIC GRAVITY URINE AUTO 1.021 (1.002-1.035); SQUAMOUS EPITHELIAL CELL UR AU 1 /HPF (0-6); UROBILINOGEN, URINE AUTO 0.2 mg/dL (0.0-2.0); WBC, URINE AUTO 1 /HPF (0-3)
[2022-02-01 16:14] LABS: BASO % 0.3 % (0.0-1.0); EOS # 0.1 10^3/uL (0.0-0.5); EOS % 2.1 % (0.0-3.0); HEMATOCRIT 41.6 % (36.0-47.0); HEMOGLOBIN 14.5 g/dl (12.0-15.5); LYMPH # 1.6 10^3/uL (1.5-5.0); MEAN CORPUSCULAR HEMOGLOBIN 31.6 pg (27.0-33.0); MEAN CORPUSCULAR HGB CONC 34.9 g/dl (32.0-36.5); MEAN CORPUSCULAR VOLUME 90.6 fl (80.0-96.0); MONO # 0.6 10^3/uL (0.0-0.8); NEUTROPHILS # 3.9 10^3/uL (1.5-8.5); NEUTROPHILS % 63.4 % (36.0-66.0); PLATELET COUNT, AUTOMATED 234 10^3/uL (150-450); RED BLOOD COUNT 4.59 10^6/uL (4.00-5.40); WHITE BLOOD COUNT 6.2 10^3/uL (4.0-10.0)
[2022-02-01 16:33] LABS: ERYTHROCYTE SEDIMENTATION RATE 2 mm/hr (0-20)
[2022-02-01 16:34] LABS: TOTAL PROTEIN,RANDOM URINE 13.7 MG/DL (0.0-12.0)
[2022-02-01 16:37] LABS: ALBUMIN 4.3 GM/DL (3.2-5.2); ALT/SGPT 15 U/L (12-78); BILIRUBIN,TOTAL 0.9 MG/DL (0.2-1.0); BLOOD UREA NITROGEN 14 MG/DL (7-18); CARBON DIOXIDE LEVEL 28 MEQ/L (21-32); CHLORIDE LEVEL 106 MEQ/L (98-107); COMPLEMENT C3 108 MG/DL (90-180); COMPLEMENT C4 25 MG/DL (10-40); CREATININE FOR GFR 0.73 MG/DL (0.55-1.30); GLOMERULAR FILTRATION RATE > 60.0 (>60); GLUCOSE, FASTING 90 MG/DL (70-100); POTASSIUM SERUM 3.8 MEQ/L (3.5-5.1); SODIUM LEVEL 140 MEQ/L (136-145); TOTAL PROTEIN 7.7 GM/DL (6.4-8.2)
[2022-02-04 12:08] LABS: ANTI DS-DNA AB Negative (Negative)
== END ==
LOC: M SFHCCLAY 12:38
PROVIDERS: ATTEND Internal Medicine Rheumatology
DX: M06.4 Inflammatory polyarthropathy (principal); R76.8 Other specified abnormal immunological findings in serum; Z79.899 Other long term (current) drug therapy

== ENCOUNTER → 2022-07-09 | Outpatient (CLI) | payer OTHER | LOC: M CLY 09:22 | PROVIDERS: ATTEND Internal Medicine Rheumatology | DX: M06.4 Inflammatory polyarthropathy (principal); R76.8 Other specified abnormal immunological findings in serum; Z79.899 Other long term (current) drug therapy ==

== ENCOUNTER → 2022-07-09 | Outpatient (REF) | payer OTHER ==
[2022-07-09 12:21] LABS: APPEARANCE, URINE MANUAL HAZY (CLEAR); BILIRUBIN, URINE MANUAL NEGATIVE (NEGATIVE); BLOOD URINE MANUAL NEGATIVE (NEGATIVE); COLOR, URINE MANUAL YELLOW (YELLOW); GLUCOSE, URINE (UA) MANUAL NEGATIVE (NEGATIVE); KETONE, URINE MANUAL NEGATIVE (NEGATIVE); LEUKOCYTE ESTERASE, URINE MAN POSITIVE (NEGATIVE); NITRITE, URINE MANUAL NEGATIVE (NEGATIVE); PROTEIN, URINE MANUAL NEGATIVE (NEGATIVE); UROBILINOGEN, URINE MANUAL NORMAL (NORMAL)
[2022-07-09 12:23] LABS: BASO % 0.4 % (0.0-1.0); EOS # 0.1 10^3/uL (0.0-0.5); EOS % 2.1 % (0.0-3.0); HEMATOCRIT 41.1 % (36.0-47.0); HEMOGLOBIN 14.3 g/dl (12.0-15.5); LYMPH % 19.5 % (24.0-44.0); MEAN CORPUSCULAR HEMOGLOBIN 32.6 pg (27.0-33.0); MEAN CORPUSCULAR HGB CONC 34.8 g/dl (32.0-36.5); MEAN CORPUSCULAR VOLUME 93.6 fl (80.0-96.0); MONO # 0.5 10^3/uL (0.0-0.8); MONO % 8.8 % (2.0-8.0); NEUTROPHILS # 3.6 10^3/uL (1.5-8.5); PLATELET COUNT, AUTOMATED 193 10^3/uL (150-450); RED BLOOD COUNT 4.39 10^6/uL (4.00-5.40); WHITE BLOOD COUNT 5.2 10^3/uL (4.0-10.0)
[2022-07-09 12:35] LABS: RBC, URINE 0-1 /hpf (0-3); SQUAMOUS EPITHELIAL CELL URINE LARGE AMOUNT /hpf (SMALL AMT)
[2022-07-09 12:36] LABS: BACTERIA, URINE MOD AMOUNT; HYALINE CAST, URINE NONE SEEN /lpf (0-1); MUCUS, URINE MOD AMOUNT (NEGATIVE)
[2022-07-09 12:47] LABS: ERYTHROCYTE SEDIMENTATION RATE 3 mm/hr (0-20)
[2022-07-09 13:03] LABS: TOTAL PROTEIN,RANDOM URINE 14.7 MG/DL (0.0-12.0)
[2022-07-09 13:18] LABS: ALBUMIN 3.8 GM/DL (3.2-5.2); ALT/SGPT 25 U/L (12-78); BILIRUBIN,TOTAL 0.8 MG/DL (0.2-1.0); BLOOD UREA NITROGEN 14 MG/DL (7-18); CALCIUM LEVEL 9.1 MG/DL (8.5-10.1); CARBON DIOXIDE LEVEL 28 MEQ/L (21-32); CHLORIDE LEVEL 104 MEQ/L (98-107); COMPLEMENT C3 113 MG/DL (90-180); COMPLEMENT C4 25 MG/DL (10-40); CREATININE FOR GFR 0.71 MG/DL (0.55-1.30); GLOMERULAR FILTRATION RATE > 60.0 (>60); GLUCOSE, FASTING 96 MG/DL (70-100); POTASSIUM SERUM 3.8 MEQ/L (3.5-5.1); SODIUM LEVEL 138 MEQ/L (136-145)
== END ==
LOC: M SFHCRHEU 09:19
PROVIDERS: ATTEND Internal Medicine Rheumatology
DX: M06.4 Inflammatory polyarthropathy (principal); R76.8 Other specified abnormal immunological findings in serum; Z79.899 Other long term (current) drug therapy

== ENCOUNTER 2022-08-18 22:41 | Inpatient (IN) | payer MEDICAID, OTHER ==
[~2022-08-18] VITALS: Ht 154.9 cm; Wt 70.5 kg
[2022-08-18] MEDS ORDERED: LORazepam 1 MG TAB PO ONE (23:00)
[2022-08-18 23:51] LABS: HEMOGLOBIN 14.8 g/dl (12.0-15.5); MEAN CORPUSCULAR HEMOGLOBIN 32.4 pg (27.0-33.0); MEAN CORPUSCULAR HGB CONC 35.2 g/dl (32.0-36.5); MEAN CORPUSCULAR VOLUME 91.9 fl (80.0-96.0); PLATELET COUNT, AUTOMATED 263 10^3/uL (150-450); RED BLOOD COUNT 4.57 10^6/uL (4.00-5.40); WHITE BLOOD COUNT 6.7 10^3/uL (4.0-10.0)
[2022-08-19 00:11] LABS: HCG, SERUM QUALITATIVE NEGATIVE (NEGATIVE)
[2022-08-19 00:26] LABS: ACETAMINOPHEN LEVEL < 2.0 UG/ML (10.0-20.0); ALBUMIN 4.1 G/DL (3.2-5.2); ALKALINE PHOSPHATASE 67 U/L (46-116); ALT/SGPT 95 U/L (7.0-40); AST/SGOT 69 U/L (<34); BILIRUBIN,DIRECT 0.2 MG/DL (<0.4); BILIRUBIN,TOTAL 0.5 MG/DL (0.3-1.2); BLOOD UREA NITROGEN 7 MG/DL (9-23); CALCIUM LEVEL 8.5 MG/DL (8.5-10.1); CARBON DIOXIDE LEVEL 31 MMOL/L (20-31); CHLORIDE LEVEL 102 MMOL/L (98-107); CREATININE FOR GFR 0.58 MG/DL (0.55-1.30); GLOMERULAR FILTRATION RATE > 60.0 (>60); GLUCOSE, FASTING 108 MG/DL (60-100); POTASSIUM SERUM 4.1 MMOL/L (3.5-5.1); SALICYLATE LEVEL < 3.0 MG/DL (<30); SODIUM LEVEL 141 MMOL/L (136-145); TOTAL PROTEIN 7.3 G/DL (5.7-8.2)
[2022-08-19 01:38] LABS: ETHYL ALCOHOL (ETHANOL) 0.173 % (0.000-0.010)
[2022-08-19 02:23] LABS: AMPHETAMINES LEVEL URINE NEGATIVE (NEGATIVE); BARBITURATES URINE NEGATIVE (NEGATIVE); BENZODIAZEPINES URINE NEGATIVE (NEGATIVE); CANNABINOIDS URINE NEGATIVE (NEGATIVE); COCAINE METABOLITE URINE POSITIVE (NEGATIVE); METHADONE URINE NEGATIVE (NEGATIVE); OPIATES URINE NEGATIVE (NEGATIVE); PHENCYCLIDINE URINE NEGATIVE (NEGATIVE)
[2022-08-19 02:36] LABS: RSV AMPLIFICATION NEGATIVE (NEGATIVE)
[2022-08-19 03:02] LABS: LITHIUM LEVEL < 0.20 MEQ/L (0.60-1.20)
[2022-08-19] MEDS ORDERED: LEVONORGESTREL (08:41)
[2022-08-19] MEDS ORDERED: PROP10TA56 PO (08:41)
[2022-08-19] MEDS ORDERED: QUET200T2 PO (08:41)
[2022-08-19] MEDS ORDERED: ALPR0.5T3 PO (08:41)
[2022-08-19] MEDS ORDERED: HOME MED LIST COMPLETE! XX SCH (08:45)
[2022-08-19] MEDS: ALPRAZolam 0.5 MG TAB PO SCH ×2 (09:00→20:21)
[2022-08-19] MEDS: QUEtiapine FUMARATE 200 MG TAB PO SCH (09:00)
[2022-08-19] MEDS: buPROPion **SR TABLET** (ZYBAN) 150MG PO SCH (09:14)
[2022-08-20] MEDS ORDERED: MAALOX 30 ML SUSP *UDC PO PRN (01:15)
[2022-08-20] MEDS ORDERED: MOM 30ML SUSPENSION UDC PO PRN (01:15)
[2022-08-20] MEDS ORDERED: ACETAMINOPHEN TAB 650MG DOSE (2X325MG) PO PRN (01:15)
[2022-08-20] MEDS ORDERED: traZODone 50 MG TAB PO PRN (01:15)
[2022-08-20] MEDS ORDERED: LORazepam 2 MG TAB PO PRN (05:30)
[2022-08-20 09:00] VITALS: BP 135/85
[2022-08-20] MEDS: buPROPion **SR TABLET** (ZYBAN) 150MG PO SCH ×2 (09:00→14:26)
[2022-08-20] MEDS: QUEtiapine FUMARATE 200 MG TAB PO SCH ×2 (09:00)
[2022-08-20] MEDS: ALPRAZolam 0.5 MG TAB PO SCH (09:00)
[2022-08-20 09:01] VITALS: BP 135/85
[2022-08-20] MEDS ORDERED: PROPRANOLOL 10 MG TAB PO PRN (13:50)
[2022-08-20 14:09] VITALS: BP 149/98
[2022-08-20] MEDS: THIAMINE 100 MG TAB PO SCH ×2 (14:26→20:31)
[2022-08-20] MEDS: MULTIVITAMINS/MINERALS THERAP 1 TAB PO SCH (14:26)
[2022-08-20] MEDS: FOLIC ACID 1MG TAB PO SCH (14:26)
[2022-08-20] MEDS ORDERED: LITHIUM CARBONATE 300 MG CAP PO SCH (21:00)
[2022-08-20 22:21] VITALS: BP 139/68
[2022-08-21 06:20] VITALS: BP 120/82
[2022-08-21 06:21] VITALS: BP 120/82
[2022-08-21] MEDS: QUEtiapine FUMARATE 200 MG TAB PO SCH (09:00)
[2022-08-21] MEDS ORDERED: NICOTINE 21MG/24HR 1 EA TRANSDERMAL TD SCH (09:00)
[2022-08-21] MEDS: FOLIC ACID 1MG TAB PO SCH (09:24)
[2022-08-21] MEDS: buPROPion **SR TABLET** (ZYBAN) 150MG PO SCH (09:24)
[2022-08-21] MEDS: MULTIVITAMINS/MINERALS THERAP 1 TAB PO SCH (09:24)
[2022-08-21] MEDS: THIAMINE 100 MG TAB PO SCH (09:24)
[2022-08-21] MEDS ORDERED: PROP10TA56 PO (11:38)
[2022-08-21] MEDS ORDERED: ALPR0.5T3 PO (11:38)
[2022-08-21] MEDS ORDERED: LITH300C PO (11:38)
[2022-08-21] MEDS ORDERED: BUPR15TA PO (11:38)
[2022-08-21] MEDS ORDERED: BUPR-71 PO (11:38)
[2023-08-20] MEDS ORDERED: NICOTINE 21MG/24HR 1 EA TRANSDERMAL TD SCH (09:00)
== END 2022-08-21 12:15 | disposition home or self-care (01) | DRG 753 ==
LOC: M ED 22:41 → M ED INP 08-20 01:12 → M PSY 08-20 08:45
PROVIDERS: ADMIT Psychiatry & Neurology Psychiatry; ATTEND Psychiatry & Neurology Psychiatry
DX: F31.9 Bipolar disorder, unspecified (principal); R45.851 Suicidal ideations; F10.10 Alcohol abuse, uncomplicated; F15.90 Other stimulant use, unspecified, uncomplicated; Z79.899 Other long term (current) drug therapy

== ENCOUNTER → 2023-03-10 | Outpatient (REF) | payer OTHER ==
[~2023-03-10] MED LIST changes: +ALPR0.5T3 PO; -HYDR200T3; -HYDR200T3 PO; +HYDR200T46; +HYDR200T46 PO; +LEVONORGESTREL; +PROP10TA56 PO; +QUET200T2 PO
[2023-03-10 11:15] LABS: BASO % 0.5 % (0.0-1.0); EOS # 0.1 10^3/uL (0.0-0.5); EOS % 2.2 % (0.0-3.0); HEMATOCRIT 42.4 % (36.0-47.0); HEMOGLOBIN 14.8 g/dl (12.0-15.5); LYMPH # 1.2 10^3/uL (1.5-5.0); LYMPH % 20.7 % (24.0-44.0); MEAN CORPUSCULAR HEMOGLOBIN 32.7 pg (27.0-33.0); MEAN CORPUSCULAR HGB CONC 34.9 g/dl (32.0-36.5); MEAN CORPUSCULAR VOLUME 93.6 fl (80.0-96.0); MONO # 0.5 10^3/uL (0.0-0.8); MONO % 7.8 % (2.0-8.0); NEUTROPHILS # 4.1 10^3/uL (1.5-8.5); NEUTROPHILS % 68.5 % (36.0-66.0); PLATELET COUNT, AUTOMATED 241 10^3/uL (150-450); RED BLOOD COUNT 4.53 10^6/uL (4.00-5.40)
[2023-03-10 11:22] LABS: HEMOGLOBIN A1c 4.4 % (4.0-6.0)
[2023-03-10 11:44] LABS: ALBUMIN 4.1 G/DL (3.2-5.2); ALKALINE PHOSPHATASE 57 U/L (46-116); ALT/SGPT 19 U/L (7.0-40); AST/SGOT 14 U/L (<34); BILIRUBIN,TOTAL 0.8 MG/DL (0.3-1.2); BLOOD UREA NITROGEN 14 MG/DL (9-23); CALCIUM LEVEL 8.8 MG/DL (8.5-10.1); CARBON DIOXIDE LEVEL 28 MMOL/L (20-31); CHLORIDE LEVEL 105 MMOL/L (98-107); CREATININE FOR GFR 0.62 MG/DL (0.55-1.30); GLOMERULAR FILTRATION RATE > 60.0 (>60); GLUCOSE, FASTING 89 MG/DL (60-100); SODIUM LEVEL 140 MMOL/L (136-145)
[2023-03-10 11:47] LABS: FREE T4 1.16 NG/DL (0.89-1.76); TOTAL T3 98.1 NG/DL (60.0-181.0)
[2023-03-10 11:48] LABS: THYROID STIMULATING HORMONE 0.997 uIU/ML (0.55-4.78)
[2023-03-10 11:50] LABS: FOLATE 14.39 NG/ML (>5.4); VITAMIN B12 LEVEL 273 PG/ML (211-911)
[2023-03-10 11:53] LABS: THYROGLOBULIN ANTIBODY < 15.0 U/ML (<60.0)
[2023-03-10 11:54] LABS: THYROID PEROXIDASE ANTIBODY < 28.0 U/ML (<60.0)
[2023-03-10 12:11] LABS: ERYTHROCYTE SEDIMENTATION RATE 4 mm/hr (0-20)
== END ==
LOC: M SFHCCLAY 08:47
PROVIDERS: ATTEND Family Medicine
DX: M06.4 Inflammatory polyarthropathy (principal); R76.8 Other specified abnormal immunological findings in serum; Z79.899 Other long term (current) drug therapy; R63.5 Abnormal weight gain

== ENCOUNTER → 2023-03-28 | Outpatient (REF) | payer OTHER | LOC: M SFHCRHEU 14:25 | PROVIDERS: ATTEND Internal Medicine Rheumatology | DX: Z53.9 Procedure and treatment not carried out, unspecified reason (principal) ==

== ENCOUNTER → 2023-07-24 | Day surgery (SDC) | payer OTHER ==
[~2023-07-24] VITALS: Ht 154.9 cm; Wt 79.8 kg
[~2023-07-24] MED LIST changes: +LR 1,000 ML IV SCH; +SILVER NITRATE APPLICATOR (1 = QTY 10) As Ordered ONE
[2023-07-24 06:44] VITALS: BP 141/93; TEMP 97.7; O2SAT 100
[2023-07-24 07:00] LABS: HEMOGLOBIN 13.9 g/dl (12.0-15.5); MEAN CORPUSCULAR HEMOGLOBIN 32.6 pg (27.0-33.0); MEAN CORPUSCULAR HGB CONC 35.6 g/dl (32.0-36.5); MEAN CORPUSCULAR VOLUME 91.5 fl (80.0-96.0); PLATELET COUNT, AUTOMATED 219 10^3/uL (150-450); RED BLOOD COUNT 4.26 10^6/uL (4.00-5.40); WHITE BLOOD COUNT 5.6 10^3/uL (4.0-10.0)
[2023-07-24 07:26] LABS: HCG, SERUM QUALITATIVE NEGATIVE (NEGATIVE)
== END | disposition home or self-care (01) ==
LOC: M SDC 06:06
PROVIDERS: ATTEND Obstetrics & Gynecology
DX: Z30.2 Encounter for sterilization (principal); Z53.09 Procedure and treatment not carried out because of other contraindication; R05.9 Cough, unspecified; Z86.16 Personal history of COVID-19

== ENCOUNTER → 2023-09-29 | Outpatient (REF) | payer OTHER ==
[~2023-09-29] MED LIST changes: +LITH600C PO; -LR 1,000 ML IV SCH; -SILVER NITRATE APPLICATOR (1 = QTY 10) As Ordered ONE
[2023-09-29 12:23] LABS: C REACTIVE PROTEIN QUANTITATIV < 0.40 MG/DL (<1.0)
[2023-09-29 12:25] LABS: ALBUMIN 3.8 G/DL (3.2-5.2); ALKALINE PHOSPHATASE 50 U/L (46-116); ALT/SGPT 16 U/L (7.0-40); AST/SGOT 11 U/L (<34); BILIRUBIN,TOTAL 0.4 MG/DL (0.3-1.2); BLOOD UREA NITROGEN 18 MG/DL (9-23); CALCIUM LEVEL 9.1 MG/DL (8.5-10.1); CARBON DIOXIDE LEVEL 29 MMOL/L (20-31); CHLORIDE LEVEL 101 MMOL/L (98-107); CREATININE FOR GFR 0.89 MG/DL (0.55-1.30); GLOMERULAR FILTRATION RATE > 60.0 (>60); GLUCOSE, FASTING 84 MG/DL (60-100); POTASSIUM SERUM 3.9 MMOL/L (3.5-5.1); SODIUM LEVEL 137 MMOL/L (136-145); TOTAL PROTEIN 6.5 G/DL (5.7-8.2)
[2023-09-29 12:42] LABS: BASO % 0.1 % (0.0-1.0); EOS # 0.1 10^3/uL (0.0-0.5); EOS % 0.7 % (0.0-3.0); HEMATOCRIT 40.6 % (36.0-47.0); HEMOGLOBIN 14.3 g/dl (12.0-15.5); LYMPH # 2.4 10^3/uL (1.5-5.0); LYMPH % 26.7 % (24.0-44.0); MEAN CORPUSCULAR HEMOGLOBIN 32.4 pg (27.0-33.0); MEAN CORPUSCULAR HGB CONC 35.2 g/dl (32.0-36.5); MEAN CORPUSCULAR VOLUME 91.9 fl (80.0-96.0); MONO # 1.1 10^3/uL (0.0-0.8); MONO % 12.7 % (2.0-8.0); NEUTROPHILS # 5.3 10^3/uL (1.5-8.5); PLATELET COUNT, AUTOMATED 233 10^3/uL (150-450); RED BLOOD COUNT 4.42 10^6/uL (4.00-5.40)
[2023-09-29 12:49] LABS: ERYTHROCYTE SEDIMENTATION RATE < 1 mm/hr (0-20)
== END ==
LOC: M SFHCCLAY 08:44
PROVIDERS: ATTEND Internal Medicine Rheumatology
DX: M06.4 Inflammatory polyarthropathy (principal); R76.8 Other specified abnormal immunological findings in serum; Z79.899 Other long term (current) drug therapy

== ENCOUNTER → 2023-10-28 | Outpatient (REF) | payer OTHER | LOC: M LAB REF 18:00 | PROVIDERS: ATTEND Surgery | DX: L72.0 Epidermal cyst (principal); L02.214 Cutaneous abscess of groin ==

== ENCOUNTER 2023-11-04 06:57 | Day surgery (SDC) | payer OTHER ==
[~2023-11-04] VITALS: Ht 154.9 cm; Wt 84.2 kg
[~2023-11-04 06:57] MED LIST changes: +LR 1,000 ML IV SCH
[2023-11-04] MEDS ORDERED: LR 1,000 ML IV SCH ×2 (07:25→10:30)
[2023-11-04 07:41] LABS: HEMATOCRIT 38.7 % (36.0-47.0); HEMOGLOBIN 13.9 g/dl (12.0-15.5); MEAN CORPUSCULAR HEMOGLOBIN 33.2 pg (27.0-33.0); MEAN CORPUSCULAR HGB CONC 35.9 g/dl (32.0-36.5); MEAN CORPUSCULAR VOLUME 92.4 fl (80.0-96.0); PLATELET COUNT, AUTOMATED 228 10^3/uL (150-450); RED BLOOD COUNT 4.19 10^6/uL (4.00-5.40); WHITE BLOOD COUNT 6.3 10^3/uL (4.0-10.0)
[2023-11-04] MEDS ORDERED: propofoL 200 MG/20 ML VIAL As Ordered ONE (08:04)
[2023-11-04] MEDS ORDERED: ONDANSETRON 4MG 2ML VIAL As Ordered ONE (08:04)
[2023-11-04] MEDS ORDERED: fentaNYL 100 MCG/2 ML INJECTION As Ordered ONE (08:04)
[2023-11-04] MEDS ORDERED: ROCURONIUM BROMIDE 50MG/5ML VIAL As Ordered ONE (08:04)
[2023-11-04] MEDS ORDERED: MIDAZOLAM INJ 2MG/2ML VIAL As Ordered ONE (08:04)
[2023-11-04] MEDS ORDERED: LIDOCAINE 2% 100MG/5ML SDV (FOR ANES.) As Ordered ONE (08:04)
[2023-11-04 08:16] LABS: HCG, SERUM QUALITATIVE NEGATIVE (NEGATIVE)
[2023-11-04] MEDS ORDERED: SILVER NITRATE APPLICATOR (1 = QTY 10) As Ordered ONE (08:32)
[2023-11-04] MEDS ORDERED: ACETAMINOPHEN 1000MG 100ML IV BAG As Ordered ONE (08:35)
[2023-11-04] MEDS ORDERED: KETOROLAC 60MG 2ML VIAL As Ordered ONE (08:35)
[2023-11-04] MEDS ORDERED: dexmedeTOMIDine (4MCG/ML)200MCG/50ML BTL (PRECEDEX) As Ordered ONE (09:11)
[2023-11-04] MEDS ORDERED: SUGAMMADEX SODIUM 500 MG/5 ML VIAL (BRIDION) As Ordered ONE (09:18)
[2023-11-04] MEDS ORDERED: IBUP80TA PO (09:58)
[2023-11-04] MEDS ORDERED: PERC5TAB12 PO (09:59)
[2023-11-04] MEDS ORDERED: HYDROMORPHONE HCL 0.5 MG/ 0.5 ML SYRINGE IV PRN (10:30)
[2023-11-04] MEDS ORDERED: oxyCODONE 5MG TAB PO PRN (10:30)
[2023-11-04] MEDS ORDERED: ONDANSETRON 4MG 2ML VIAL IV PRN (10:30)
[2023-11-04] MEDS ORDERED: fentaNYL 100 MCG/2 ML INJECTION IV PRN (10:30)
[2023-11-04 11:35] VITALS: BP 128/58; TEMP 97.8; O2SAT 95
== END 2023-11-04 11:43 | disposition home or self-care (01) ==
LOC: M SDC 06:57
PROVIDERS: ATTEND Obstetrics & Gynecology
DX: Z30.2 Encounter for sterilization (principal); Z30.432 Encounter for removal of intrauterine contraceptive device; F17.200 Nicotine dependence, unspecified, uncomplicated; F31.9 Bipolar disorder, unspecified; Z79.899 Other long term (current) drug therapy; Z88.8 Allergy status to other drugs, medicaments and biological substances
CPT/HCPCS: 36415; 58301; 58661; 84703; 85027; 86850; 86900; 86901; 88302; J0131; J0665; J1100; J1885; J2250; J2405; J3010

== ENCOUNTER → 2024-01-01 | Outpatient (REF) | payer OTHER ==
[~2024-01-01] MED LIST changes: +IBUP80TA PO; -LR 1,000 ML IV SCH; +PERC5TAB12 PO
[2024-01-01 13:39] LABS: CORTISOL AM 0.6 UG/DL (4.3-22.4)
[2024-01-01 13:42] LABS: THYROID STIMULATING HORMONE 0.867 uIU/ML (0.55-4.78)
[2024-01-01 13:43] LABS: FREE T4 1.15 NG/DL (0.89-1.76)
== END ==
LOC: M LABDRAWC 11:57
PROVIDERS: ATTEND Nurse Practitioner Family
DX: R63.5 Abnormal weight gain (principal)

== ENCOUNTER → 2024-03-17 | Outpatient (REF) | payer OTHER | LOC: M SFHCCLAY 16:42 | PROVIDERS: ATTEND Family Medicine | DX: R19.7 Diarrhea, unspecified (principal); R19.4 Change in bowel habit ==

== ENCOUNTER → 2024-09-08 | Outpatient (REF) | payer OTHER ==
[2024-09-09 12:55] LABS: BASO % 0.4 % (0.0-1.0); EOS # 0.1 10^3/uL (0.0-0.5); EOS % 2.3 % (0.0-3.0); HEMATOCRIT 42.2 % (36.0-47.0); HEMOGLOBIN 14.9 g/dl (12.0-15.5); LYMPH # 1.2 10^3/uL (1.5-5.0); LYMPH % 23.7 % (24.0-44.0); MEAN CORPUSCULAR HEMOGLOBIN 32.3 pg (27.0-33.0); MEAN CORPUSCULAR HGB CONC 35.3 g/dl (32.0-36.5); MEAN CORPUSCULAR VOLUME 91.5 fl (80.0-96.0); MONO # 0.5 10^3/uL (0.0-0.8); MONO % 9.7 % (2.0-8.0); NEUTROPHILS # 3.3 10^3/uL (1.5-8.5); NEUTROPHILS % 63.5 % (36.0-66.0); PLATELET COUNT, AUTOMATED 267 10^3/uL (150-450); RED BLOOD COUNT 4.61 10^6/uL (4.00-5.40); WHITE BLOOD COUNT 5.2 10^3/uL (4.0-10.0)
[2024-09-09 13:16] LABS: ERYTHROCYTE SEDIMENTATION RATE 8 mm/hr (0-20)
== END ==
LOC: M SFHCCLAY 08:59
PROVIDERS: ATTEND Internal Medicine Rheumatology
DX: M06.4 Inflammatory polyarthropathy (principal); R76.8 Other specified abnormal immunological findings in serum; Z79.899 Other long term (current) drug therapy

== ENCOUNTER → 2024-09-09 | Outpatient (REF) | payer OTHER ==
[2024-09-09 13:19] LABS: ALBUMIN 4.1 G/DL (3.2-5.2); ALKALINE PHOSPHATASE 69 U/L (35-104); ALT/SGPT 41 U/L (7.0-40); AST/SGOT 21 U/L (<34); BILIRUBIN,TOTAL 0.8 MG/DL (0.3-1.2); BLOOD UREA NITROGEN 14 MG/DL (9-23); CARBON DIOXIDE LEVEL 28 MMOL/L (20-31); CHLORIDE LEVEL 103 MMOL/L (98-107); CHOLESTEROL LEVEL 157 MG/DL (<200); CREATININE FOR GFR 0.72 MG/DL (0.55-1.30); GLOMERULAR FILTRATION RATE > 60.0 (>60); GLUCOSE, FASTING 79 MG/DL (60-100); HDL CHOLESTEROL 58.1 MG/DL (>40); LDL CHOLESTEROL 82.5 MG/DL (<100); NON-HDL-C 98.9 MG/DL; POTASSIUM SERUM 4.3 MMOL/L (3.5-5.1); SODIUM LEVEL 138 MMOL/L (136-145); TOTAL PROTEIN 7.6 G/DL (5.7-8.2); TRIGLYCERIDES LEVEL 82 MG/DL (<150)
[2024-09-09 13:21] LABS: THYROID STIMULATING HORMONE 1.805 uIU/ML (0.55-4.78)
[2024-09-09 13:52] LABS: HEMOGLOBIN A1c 4.6 % (4.0-6.0)
== END ==
LOC: M LABDRAWC 11:20
DX: Z68.32 Body mass index [BMI] 32.0-32.9, adult (principal)

== ENCOUNTER → 2024-11-02 | Outpatient (CLI) | payer OTHER | LOC: M CLY 09:19 | PROVIDERS: ATTEND Internal Medicine Rheumatology | DX: M06.4 Inflammatory polyarthropathy (principal) ==

== ENCOUNTER → 2024-11-02 | Outpatient (REF) | payer OTHER ==
[2024-11-02 12:29] LABS: ALBUMIN 3.6 G/DL (3.2-5.2); ALKALINE PHOSPHATASE 56 U/L (35-104); ALT/SGPT 46 U/L (7.0-40); AST/SGOT 18 U/L (<34); BILIRUBIN,DIRECT 0.2 MG/DL (<0.4); BILIRUBIN,TOTAL 0.5 MG/DL (0.3-1.2); IRON (FE) 113 UG/DL (50-170); PERCENT SATURATION 41.4 % (13.2-45.0); TOTAL IRON BINDING CAPACITY 273 UG/DL (250-425); TOTAL PROTEIN 6.6 G/DL (5.7-8.2)
[2024-11-02 12:31] LABS: FERRITIN 155.5 NG/ML (7.3-270.7)
[2024-11-02 13:02] LABS: HEPATITIS B SURFACE ANTIBODY POSITIVE (POSITIVE)
[2024-11-02 13:13] LABS: HEPATITIS B SURFACE ANTIGEN NEGATIVE (NEGATIVE)
== END ==
LOC: M LABDRAWC 11:15
DX: R94.5 Abnormal results of liver function studies (principal)

== ENCOUNTER → 2024-11-18 | Outpatient (REF) | payer OTHER ==
[2024-11-23 13:23] LABS: HPV APTIMA Not Detected (Not Detected)
== END ==
LOC: M SFHCWAGY 13:08
PROVIDERS: ATTEND Obstetrics & Gynecology
DX: Z12.4 Encounter for screening for malignant neoplasm of cervix (principal)

== ENCOUNTER → 2024-12-14 | Outpatient (CLI) | payer OTHER | LOC: M WHC 08:21 | PROVIDERS: ATTEND Obstetrics & Gynecology | DX: N93.9 Abnormal uterine and vaginal bleeding, unspecified (principal); N88.8 Other specified noninflammatory disorders of cervix uteri; N83.201 Unspecified ovarian cyst, right side; R93.89 Abnormal findings on diagnostic imaging of other specified body structures ==

== ENCOUNTER → 2025-05-10 | Outpatient (CLI) | payer OTHER ==
[~2025-05-10] MED LIST changes: +BUPR150T15 PO; -BUPR1TAB53 PO; +ISOVUE-370 76% 100 ML VIAL ONE
== END ==
LOC: M PLAIMG 09:35
DX: R94.5 Abnormal results of liver function studies (principal)
CPT/HCPCS: 74160; Q9967

== ENCOUNTER → 2025-06-16 | Outpatient (CLI) | payer OTHER ==
[~2025-06-16] MED LIST changes: -ISOVUE-370 76% 100 ML VIAL ONE
== END ==
LOC: M WHC 08:17
PROVIDERS: ATTEND Obstetrics & Gynecology
DX: N64.52 Nipple discharge (principal)